=== PATIENT | female | born 1940 | race Caucasian/White ===

== ENCOUNTER 2017-07-22 12:00 | Emergency (ER) | payer OTHER ==
--- NOTE | 2017-07-22 12:35 | PDOC ---
History of Present Illness - General Stated Complaint: CELLULITIS (PCP SENT) Time Seen by Provider: 07/22/17 12:32 History Source: Patient Exam Limitations: No Limitations - History of Present Illness Initial Comments: 07/22/17 12:35 The patient is a 77 year old female with a h/o hypothyroidism, HTN and hyperlipidemia and melanoma who presents to the ED sent by her PCP Dr. Gresham for treatment of cellulitis of the left leg if she didn't feel better by today. Symptoms started on Tuesday. She saw Dr. Gresham Tuesday who started her on Cefalexin. Vaccinated for shingles in the past. States that the pain radiated from the inside of her buttock to the right radiating along the external side of her thigh. Painful to light touch. Red rash on the thigh. 07/22/17 14:49 07/22/17 15:16 Negative Duplex. Will treat for Zoster. Past History - Past Medical History Allergies/Adverse Reactions: Allergies Allergy/AdvReac Type Severity Reaction Status Date / Time No Known Drug Allergies Allergy Verified 03/11/16 08:25 Home Medications: Ambulatory Orders Rosuvastatin Calcium [Crestor] 5 mg PO DAILY 08/30/14 Thyroid,Pork [[place] Thyroid] 60 mg PO DAILY 08/30/14 Valsartan/Hydrochlorothiazide [Valsartan-Hctz 160-25 mg Tab] 1 each PO DAILY 12/09 Valacyclovir HCl [Valtrex -] 1,000 mg PO TID #21 tablet 07/22/17 Anemia: No Asthma: No Cancer: No Cardiac Disorders: No CVA: No COPD: No CHF: No Dementia: No Diabetes: No GI Disorders: Yes (DIVERTICULITIS) Disorders: No HTN: Yes Hypercholesterolemia: No Liver Disease: No Seizures: No Thyroid Disease: Yes - Surgical History Abdominal Surgery: No Appendectomy: No Cardiac Surgery: No Cholecystectomy: No Lung Surgery: No Neurologic Surgery: No Orthopedic Surgery: No - Suicide/Smoking/Psychosocial Hx Smoking History: Never smoked Hx Alcohol Use: Yes (SOCIALLY) Drug/Substance Use Hx: No Substance Use Type: None Hx Substance Use Treatment: No Review of Systems - Review of Systems Able to Perform ROS?: Yes Is the patient limited Citizen Of [place] proficient: No Constitutional: No: Symptoms Reported HEENTM: Yes: Ear Pain (complains of left red swollen ear since her arrival.) Respiratory: No: Symptoms reported Cardiac (ROS): No: Symptoms Reported ABD/GI: No: Symptoms Reported : No: Symptoms Reported Musculoskeletal: No: Symptoms Reported Integumentary: Yes: Erythema, Flushing, Rash. No: Pruritus Neurological: No: Symptoms reported All Other Systems: Reviewed and Negative *Physical Exam - Physical Exam General Appearance: Yes: Nourished, Appropriately Dressed. No: Apparent Distress HEENT: positive: EOMI, MO. negative: TM Bulging, TM Dull, TM Erythema Respiratory/Chest: positive: Lungs Clear, Normal Breath Sounds. negative: Chest Tender, Respiratory Distress Cardiovascular: positive: Regular Rhythm, Regular Rate, S1, S2 Vascular Pulses: Dorsalis-Pedis (R): 2+, Doralis-Pedis (L): 2+ Gastrointestinal/Abdominal: positive: Normal Bowel Sounds, Flat, Soft. negative : Tender Rectal Exam: positive: other (possibly vesicular round lesion periannaly). negative: hemorrhoids Extremity: positive: Normal Capillary Refill, Inflammation, Other (tender with ligh touch on the surface of her thigh. Red plaque-like rash no vesicles). negative: Delayed Capillary Refill, Swelling Integumentary: positive: Normal Color, Dry, Warm, Erythema Neurologic: positive: Fully Oriented, Alert, Normal Mood/Affect, Normal Response. negative: Abnormal Cranial NS Medical Decision Making - Medical Decision Making 07/22/17 14:57Herpes-zoster vs thrombophlebitis vs cellulitis. basic labs and duplex. If negative will treat with valacyclovir. *DC/Admit/Observation/Transfer Diagnosis at time of Disposition: Herpes zoster of thigh - Discharge Dispostion Disposition: HOME Admit: No - Referrals Referrals: Faviola Gresham MD [Primary Care Provider] - - Patient Instructions Printed Discharge Instructions: DI for Shingles - Post Discharge Activity
[2017-07-22 12:52] VITALS: TEMP 97.9; BMI 26.3
--- NOTE | 2017-07-22 13:44 | PDOC ---
Attending Attestation - HPI HPI: 07/22/17 15:21 The patient is a 77 year old female, with a significant past medical history of htn, hld, hypothyroidism, who presents to the emergency department with 3 days of increasing redness and pain to a wound on her buttock and along her L lateral thigh. Pt has been on cephalexen for the rash by her PMD for 3 days with no improvement. Her PMD advised her to come to the ED if the rash/pain did not improve. She denies chest pain, shortness of breath, headache and dizziness. She denies fever, chills, nausea, vomit, diarrhea and constipation. She denies dysuria, frequency, urgency and hematuria. Allergies: NKDA PMD: Dr. Gresham - Physicial Exam PE: 07/22/17 15:21 GENERAL: Awake, alert, and fully oriented, in no acute distress HEAD: No signs of trauma EYES: PERRLA, EOMI, sclera anicteric, conjunctiva clear ENT: Auricles normal inspection, hearing grossly normal, nares patent, oropharynx clear without exudates. Moist mucosa NECK: Normal ROM, supple, no lymphadenopathy, JVD, or masses LUNGS: Breath sounds equal, clear to auscultation bilaterally. No wheezes, and no crackles HEART: Regular rate and rhythm, normal S1 and S2, no murmurs, rubs or gallops ABDOMEN: Soft, nontender, normoactive bowel sounds. No guarding, no rebound. No masses EXTREMITIES: LLE: L buttock with ttp along L gluteal cleft and skin sensitivity. Palpable mildly erythematous cord along L lateral distal thigh. No calf ttp or edema. +FROM Remaining extremities: Normal range of motion, no edema. No clubbing or cyanosis. No cords, erythema, or tenderness NEUROLOGICAL: Normal speech, cranial nerves intact, negative pronator drift, 5/ 5 strength in all 4 extremities, normal sensation to light touch in all 4 extremities, normal cerebellar exam, normal gait, normal reflexes and tone SKIN: Warm, Dry, normal turgor, no rashes or lesions noted. - Medical Decision Making 07/22/17 15:21 Documentation prepared by Jennifer Mckeon, acting as medical genetics director for Omega Black MD <Jennifer Mckeon - Last Filed: 07/22/17 15:21> - Resident Resident Name: AnilZak - ED Attending Attestation I have performed the following: I have examined & evaluated the patient, The case was reviewed & discussed with the resident, I agree w/resident's findings & plan, Exceptions are as noted - Medical Decision Making 07/22/17 14:37 77-year-old female presents with progressive erythema and pain to left lower extremity. Vitals unremarkable. Exam with left lower extremity skin sensitivity , 1+ non pitting edema as well as a palpable cord to her left lateral thigh. Differential includes but is not limited to cellulitis versus superficial thrombophlebitis versus zoster. Plan: -US doppler -call PMD -consider zoster tx if US neg -reassess -pt currently declines pain medication 07/22/17 15:52 US negative for superficial or deep venous thrombosis. Will treat the patient with valtrex for possible shingles. Advised her to complete her dose of cephalexen. Has f/u with Dr. Gresham on Tuesday, discussed our findings with Dr. Gresham who agrees with our plan to add valtrex. All results explained to patient and her . I discussed the physical exam findings, ancillary test results and final diagnoses with the patient. I answered all of the patient's questions. The patient was satisfied with the care received and felt comfortable with the discharge plan and treatment plan. The patient will call their primary care physician within 24 hours to arrange follow-up and will return to the Emergency Department with any new, persistent or worsening symptoms. <Omega Black - Last Filed: 07/22/17 18:02>
[2017-07-22] MEDS ORDERED: valACYclovir HCL 1000 MG TABLET PO ONE (15:18)
[2017-07-22] MEDS ORDERED: valACYclovir HCL 500 MG TABLET (FP) PO ONE (15:30)
[2017-07-22 16:29] VITALS: BP 148/70; PULSE 81
== END 2017-07-22 16:29 | disposition home or self-care (01) ==
LOC: JER 12:00
DX: B02.9 Zoster without complications (principal); I10 Essential (primary) hypertension
CPT/HCPCS: 93971-TC; 99282-25

== ENCOUNTER 2017-07-23 23:01 | Observation (INO) | payer OTHER ==
[2017-07-24 00:38] LABS: BASO % 0.3 % (0-2.0); EOS % 1.1 % (0-4.5); HEMATOCRIT 33.2 % (32.4-45.2); LYMPH % 21.2 % (8-40); MCHC 33.3 g/dl (32.0-36.0); MEAN CELL VOLUME 83.9 fl (80-96); MEAN PLT VOLUME 8.1 fl (7.5-11.1); MONO % 11.3 % (3.8-10.2); NEUT % 66.1 % (42.8-82.8); PLATELET COUNT 236 K/MM3 (134-434); RBC 3.95 M/mm3 (3.60-5.2); RDW 13.9 % (11.6-15.6); WHITE BLOOD COUNT 11.3 K/mm3 (4.0-10.0)
[2017-07-24] MEDS ORDERED: SODIUM CHLORIDE 1,000 ML IV ONE (00:40)
[2017-07-24] MEDS ORDERED: VANCOMYCIN 1,000 MG in DEXTROSE 5%-WATER - 250 ML IVPB ONE (00:40)
[2017-07-24] MEDS ORDERED: ACETAMINOPHEN 1000 MG/100 ML VIAL (NON FORMULARY) IVPB ONE (00:40)
--- NOTE | 2017-07-24 00:44 | PDOC ---
History of Present Illness - General History Source: Patient Exam Limitations: No Limitations - History of Present Illness Initial Comments: 07/24/17 00:52 The patient is a 77 year old female with past medical history of hypertension, hyperlipidemia, hypothyroidism, and borderline diabetes who presents to the ED with complaints of worsening left lower extremity swelling and pain for the past 6 days. The patient notes her symptoms began at her thigh as a red rash which soon began spreading down the entire extremity. The patient was being treated by her PCP for this symptoms with Cefalexin and was sent to the ED yesterday for worsening swelling. In the ED, the patient had ultrasound which was negative for DVT. She was discharged on Valtrex for shingles precaution. Today, the patient reports no relief in her symptoms. She denies any warmth to the area, fever, chills. She denies any numbness or tingling to the extremity. <Unique Shaikh - Last Filed: 07/24/17 00:51> <Dudley Braxton - Last Filed: 07/24/17 02:24> - General Chief Complaint: Edema Stated Complaint: LEG PAIN Time Seen by Provider: 07/23/17 23:43 Past History <Unique Shaikh - Last Filed: 07/24/17 00:51> - Past Medical History Anemia: No Asthma: No Cancer: No Cardiac Disorders: No CVA: No COPD: No CHF: No Dementia: No Diabetes: No GI Disorders: Yes (DIVERTICULITIS) Disorders: No HTN: Yes Hypercholesterolemia: No Liver Disease: No Seizures: No Thyroid Disease: Yes - Surgical History Abdominal Surgery: No Appendectomy: No Cardiac Surgery: No Cholecystectomy: No Lung Surgery: No Neurologic Surgery: No Orthopedic Surgery: No - Suicide/Smoking/Psychosocial Hx Smoking History: Never smoked Have you smoked in the past 12 months: No Information on smoking cessation initiated: No Hx Alcohol Use: No Drug/Substance Use Hx: No Substance Use Type: None Hx Substance Use Treatment: No <Dudley Braxton - Last Filed: 07/24/17 02:24> - Past Medical History Allergies/Adverse Reactions: Allergies Allergy/AdvReac Type Severity Reaction Status Date / Time No Known Drug Allergies Allergy Verified 07/23/17 23:10 Home Medications: Ambulatory Orders Thyroid,Pork [[place] Thyroid] 60 mg PO DAILY 08/30/14 Valacyclovir HCl [Valtrex -] 1,000 mg PO TID #21 tablet 07/22/17 Cephalexin [Keflex] 500 mg PO DAILY 07/23/17 Valsartan/Hydrochlorothiazide [Diovan Hct 160-12.5 mg Tab] 1 each PO DAILY 07/23 Review of Systems - Review of Systems Constitutional: No: Chills, Fever Respiratory: No: Cough, Shortness of Breath Cardiac (ROS): Yes: Edema. No: Chest Pain Musculoskeletal: Yes: Muscle Pain Integumentary: Yes: Rash All Other Systems: Reviewed and Negative <Dudley Braxton - Last Filed: 07/24/17 02:24> *Physical Exam - Vital Signs Last Vital Signs Temp Pulse Resp BP Pulse Ox 97.2 F L 82 16 150/63 98 07/23/17 23:08 07/23/17 23:08 07/23/17 23:08 07/23/17 23:08 07/23/17 23:08 - Physical Exam Comments: 07/24/17 00:52 GENERAL: The patient is awake, alert, and fully oriented, in no acute distress. HEAD: Normal with no signs of trauma. EYES: Pupils equal, round and reactive to light, extraocular movements intact, sclera anicteric, conjunctiva clear with no pallor. ENT: Ears normal, nares patent, oropharynx clear without exudates. Moist mucous membranes. NECK: Normal range of motion, supple without lymphadenopathy, JVD, or masses. LUNGS: Breath sounds equal, clear to auscultation bilaterally. No wheeze/ crackles. HEART: Regular rate and rhythm, normal S1 and S2 without murmur or rub. ABDOMEN: Soft/nontender/nondistended. BS wnl. No guarding or rebound. No palpable masses. No hepatosplenomegaly. EXTREMITIES:3+ pitting edema extending from groin to toes of LLE, Not warm to touch. Distal pulses are palpable. 3-4 cm area of tender induration of the anterolateral aspect of her thigh. No fluctuance or discharge. ? s4 dermatome, erythematous rash with vesicular lesions Normal range of motion. No clubbing or cyanosis. NEUROLOGICAL: Cranial nerves II through XII grossly intact. Normal speech, normal gait. PSYCH: Normal mood, normal affect. SKIN: Warm, Dry, normal turgor, no rashes or lesions noted. <Unique Shaikh - Last Filed: 07/24/17 00:51> - Vital Signs Last Vital Signs Temp Pulse Resp BP Pulse Ox 97.2 F L 82 16 150/63 98 07/23/17 23:08 07/23/17 23:08 07/23/17 23:08 07/23/17 23:08 07/23/17 23:08 <Dudley Braxton - Last Filed: 07/24/17 02:24> ED Treatment Course - LABORATORY CBC & Chemistry Diagram: 07/24/17 00:31 07/24/17 00:31 - ADDITIONAL ORDERS Additional order review: 07/24/17 00:31 RBC 3.95 MCV 83.9 MCHC 33.3 RDW 13.9 MPV 8.1 Neutrophils % 66.1 Lymphocytes % 21.2 D Monocytes % 11.3 H Eosinophils % 1.1 Basophils % 0.3 <Unique Shaikh - Last Filed: 07/24/17 00:51> - LABORATORY CBC & Chemistry Diagram: 07/24/17 00:31 07/24/17 00:31 - ADDITIONAL ORDERS Additional order review: 07/24/17 00:31 RBC 3.95 MCV 83.9 MCHC 33.3 RDW 13.9 MPV 8.1 Neutrophils % 66.1 Lymphocytes % 21.2 D Monocytes % 11.3 H Eosinophils % 1.1 Basophils % 0.3 - RADIOLOGY Radiology Studies Ordered: Category Date Time Status LOWER EXTREMITY CT WITH CONTR [CT] Stat CT Scan 07/24/17 00:41 Ordered CHEST X-RAY PORTABLE* [RAD] Stat Radiology 07/24/17 00:01 Ordered <Dudley Braxton - Last Filed: 07/24/17 02:24> Medical Decision Making - Medical Decision Making 07/24/17 00:45 A portion of this note was documented by scribe services under my direction. I have reviewed the details of the note, within reason, and agree with the documentation with the following case summary and management plan written by me. 77-year-old female with history of hypertension, high cholesterol, borderline diabetes presents with progressive swelling and discomfort to her left lower extremity. Symptoms began about 6 days ago with a discomfort to her lower left thigh, no trauma but noticed some redness. As the redness was expanding, she was started on cephalexin by her primary physician 4 days ago, but developed progressive swelling to her left leg so she presents to the emergency department yesterday for evaluation. An ultrasound showed no DVT, the patient was noted to have a vesicular rash around her buttock, so bowel checks was added for presumed shingles. The patient now presents secondary to still worsening swelling of her left leg with discomfort and difficulty ambulating. Afebrile, vital signs normal. Well-appearing, cardiopulmonary exam is normal Left leg: There is circumferential edema from the left groin throughout the left lower extremity, pitting, only minimal discomfort to palpation throughout the muscle/soft tissue. There is no focal bony deformity or tenderness, full range of motion at all joints. No warmth, well perfused distally. There is a small area of induration in the anterolateral aspect of the distal upper leg. There is also an erythematous rash with vesicles in the S4 distribution dermatome. 77-year-old female with progressive edema of her left lower extremity, question infectious. Began with a very superficial cellulitis, question underlying myositis but does not have much tenderness. No DVT on ultrasound performed yesterday, question lymphatic obstruction. Also with shingles, question reactive edema. Check labs including CPK IV antibiotics for presumed infectious process, will give vancomycin for MRSA coverage CT of the lower leg with IV contrast Admission given progression of symptoms and difficulty ambulating 07/24/17 01:26 wbc 11.3 with normal diff, normal cpk, elevated CRP, ESR pending. Seems less likely c/w myositis, CT pending. Receiving abx. Will proceed with admission, [facility] service paged. 07/24/17 01:47 Torso redness without urticaria after vancomycin infusion, question ALLERGIC reaction versus red Man side effect. Infusion had already been completed, given Benadryl. 07/24/17 02:[address] w/ contrast, ESR pending. Redness resolved after benadryl. Accepted for obs med/surg by Dr. Guo, Nurse supervisor inspection and testing aware and searching for bed. <Dudley Braxton - Last Filed: 07/24/17 02:24> *DC/Admit/Observation/Transfer - Attestations Scribe Attestion: 07/24/17 00:52 Documentation prepared by Unique Shaikh, acting as medical technologist chief for Dudley Braxton MD. <Unique Shaikh - Last Filed: 07/24/17 00:51> - Discharge Dispostion Admit: Yes <Dudley Braxton - Last Filed: 07/24/17 02:24> Diagnosis at time of Disposition: Left leg swelling - Discharge Dispostion Condition at time of disposition: Fair - Referrals Referrals: Faviola Gresham MD [Primary Care Provider] - - Patient Instructions - Post Discharge Activity
[2017-07-24] MEDS ORDERED: VANCOMYCIN 1 GRAM (PRE-DOCKED) 1,000 MG/250 ML BAG IVPB ONE (00:47)
[2017-07-24 00:54] LABS: INR 1.13 (0.82-1.09); PROTHROMBIN TIME (PATIENT) 12.8 SEC (9.98-11.88)
[2017-07-24 00:57] LABS: ACTIVATED PTT 27.4 SECONDS (26.9-34.4)
[2017-07-24 01:03] LABS: ALBUMIN 3.9 g/dl (3.4-5.0); ALK PHOS 89 U/L (45-117); ANION GAP 10 (8-16); BILIRUBIN,TOTAL 0.6 mg/dL (0.2-1.0); BLOOD UREA NITROGEN 17 mg/dL (7-18); CALCIUM 8.5 mg/dL (8.5-10.1); CHLORIDE 92 mmol/L (98-107); CO2 28 mmol/L (21-32); CREATININE 0.9 mg/dL (0.55-1.02); GLUCOSE,RANDOM 130 mg/dL (74-106); POTASSIUM 3.5 mmol/L (3.5-5.1); SGOT/AST 30 U/L (15-37); SGPT/ALT 47 U/L (12-78); SODIUM 130 mmol/L (136-145); TOT PROT 7.4 g/dl (6.4-8.2)
[2017-07-24 02:28] LABS: ERYTHROCYTE SEDIMENTATION RATE 32 mm/hr (0-30)
--- NOTE | 2017-07-24 03:16 | HP ---
CHIEF COMPLAINT: left Leg swelling PCP: HISTORY OF PRESENT ILLNESS: 77 year old female with a past medical history of hypertension, hypothyroidism, hyperlipidemia presents to the hospital with a 4 day hx of left lower extremity pain and swelling. Patient states that she was in her house on Tuesday casually walking from one room to another when she felt a pain on the left anterior thigh. She states that the pain was a throbbing pain and it hurt her to walk. After the pain began focally in that location, the area began to swell as well. Patient visited her primary care physician, who diagnosed her with cellulitis and prescribed her cephalexin 500mg PO QD. Patient took this medication until this morning to no effect. She was in the hospital yesterday for examination of the leg, had a duplex US, which ruled out DVT in the leg. It was noticed that patient had a rash in her gluteal cleft, which was attributed to potential zoster infection, and the patient was discharged on valtrex. She states that the leg is much more swollen than it had been before and that it is tender to touch and to move. Additionally, patient states that she has a rash on her gluteal cleft that is painful for her when she sits on it or needs to use the bathroom. Patient denies chest pain, SOB, nausea, vomiting, diarrhea, fevers, or chills. No recent travel or bug bites. Patient states that she was sick with "gastroenteritis" 1 week ago and had diarrhea but no nausea or vomiting. Patient states that this was self-limiting. ER course was notable for: (1) leukocytosis 11.3 (2) hyponatremia 130 (3) Recent Travel: none PAST MEDICAL HISTORY: hypertension, hypothyroidism, hyperlipidemia PAST SURGICAL HISTORY: Social History: Smoking: none, never Alcohol: occasional Drugs: never Family History: Allergies No Known Drug Allergies Allergy (Verified 07/23/17 23:10) HOME MEDICATIONS: Home Medications Medication Instructions Recorded Thyroid,Pork [[place] Thyroid] 60 mg PO DAILY 08/30/14 Valacyclovir HCl [Valtrex -] 1,000 mg PO TID #21 tablet 07/22/17 Cephalexin [Keflex] 500 mg PO DAILY 07/23/17 Valsartan/Hydrochlorothiazide 1 each PO DAILY 07/23/17 [Diovan Hct 160-12.5 mg Tab] REVIEW OF SYSTEMS CONSTITUTIONAL: Absent: fever, chills, diaphoresis, generalized weakness, malaise, loss of appetite, weight change HEENT: Absent: rhinorrhea, nasal congestion, throat pain, throat swelling, difficulty swallowing, mouth swelling, ear pain, eye pain, visual changes CARDIOVASCULAR: Absent: chest pain, syncope, palpitations, irregular heart rate, lightheadedness , peripheral edema RESPIRATORY: Absent: cough, shortness of breath, dyspnea with exertion, orthopnea, wheezing, stridor, hemoptysis GASTROINTESTINAL: Absent: abdominal pain, abdominal distension, nausea, vomiting, diarrhea, constipation, melena, hematochezia GENITOURINARY: Absent: dysuria, frequency, urgency, hesitancy, hematuria, flank pain, genital pain MUSCULOSKELETAL: joint swelling, extremity swelling Absent: myalgia, arthralgia, back pain, neck pain SKIN: Absent: rash, itching, pallor HEMATOLOGIC/IMMUNOLOGIC: Absent: easy bleeding, easy bruising, lymphadenopathy, frequent infections ENDOCRINE: Absent: unexplained weight gain, unexplained weight loss, heat intolerance, cold intolerance NEUROLOGIC: Absent: headache, focal weakness or paresthesias, dizziness, unsteady gait, seizure, mental status changes, bladder or bowel incontinence PSYCHIATRIC: Absent: anxiety, depression, suicidal or homicidal ideation, hallucinations. PHYSICAL EXAMINATION Vital Signs - 24 hr 07/23/17 23:08 Temperature 97.2 F L Pulse Rate 82 Respiratory 16 Rate Blood Pressure 150/63 O2 Sat by Pulse 98 Oximetry (%) GENERAL: Awake, alert, and fully oriented, in no acute distress. HEAD: Normal with no signs of trauma. EYES: Pupils equal, round and reactive to light, extraocular movements intact, sclera anicteric, conjunctiva clear. No lid lag. LUNGS: Breath sounds equal, clear to auscultation bilaterally. No wheezes, and no crackles. No accessory muscle use. HEART: Regular rate and rhythm, normal S1 and S2 without murmur, rub or gallop. ABDOMEN: Soft, nontender, not distended, normoactive bowel sounds, no guarding, no rebound, no masses. No hepatomegaly or splenomegaly. MUSCULOSKELETAL: reduced range of motion of LLE, No bony deformities or tenderness. No CVA tenderness. UPPER EXTREMITIES: 2+ pulses, warm, well-perfused. No cyanosis. No clubbing. No peripheral edema. LOWER EXTREMITIES: 2+ pulses in RLE, 1+ pulse appreciated in LLE, warm, well- perfused. No calf tenderness. erythematous, cord-like lesion noted on anterior left thigh. Left thigh and leg 1+ edema. NEUROLOGICAL: Cranial nerves II-XII intact. Normal speech. Normal gait. PSYCHIATRIC: Cooperative. Good eye contact. Appropriate mood and affect. SKIN: Warm, dry, normal turgor, erythematous rash noted on and around gluteal cleft that is also tender to palpation Laboratory Results - last 24 hr 07/24/17 07/24/17 07/24/17 00:31 00:31 00:31 WBC 11.3 H D RBC 3.95 Hgb 11.0 Hct 33.2 MCV 83.9 MCH 28.0 MCHC 33.3 RDW 13.9 Plt Count 236 MPV 8.1 Neutrophils % 66.1 Lymphocytes % 21.2 D Monocytes % 11.3 H Eosinophils % 1.1 Basophils % 0.3 ESR 32 H PT with INR 12.80 H INR 1.13 PTT (Actin FS) 27.4 Sodium 130 L Potassium 3.5 Chloride 92 L Carbon Dioxide 28 Anion Gap 10 BUN 17 Creatinine 0.9 Creat Clearance w eGFR > 60 Random Glucose 130 H Calcium 8.5 Total Bilirubin 0.6 D AST 30 ALT 47 Alkaline Phosphatase 89 Creatine Kinase C-Reactive Protein 7.7 H Total Protein 7.4 Albumin 3.9 07/24/17 00:31 WBC RBC Hgb Hct MCV MCH MCHC RDW Plt Count MPV Neutrophils % Lymphocytes % Monocytes % Eosinophils % Basophils % ESR PT with INR INR PTT (Actin FS) Sodium Potassium Chloride Carbon Dioxide Anion Gap BUN Creatinine Creat Clearance w eGFR Random Glucose Calcium Total Bilirubin AST ALT Alkaline Phosphatase Creatine Kinase 69 C-Reactive Protein Total Protein Albumin ASSESSMENT/PLAN: 77 year old female with a past medical history of hypertension, hyperlipidemia, hypothyroidism presents to the hospital for left lower extremity pain and erythema likely 2/2 cellulitis vs zoster infection #Cellulitis of LLE: concerning due to cord-like palpable lesion with swelling, erythema, and leukocytosis -F/U CT LLE -Vancomycin given in ED -Give ceftriaxone 1 gram -ID consult Dr. Maxwell appreciated -ABX per ID -pulse checks- concern for compartment syndrome if leg continues to swell #Possible Shingles: due to appearance of rash that is tender to palpation on gluteal cleft -continue valtrex #Hyponatremia: sodium 130 today -continue standing fluids at 83cc/hr -hold thiazide diuretic (HCTZ) in setting of hyponatremia #Hypokalemia: potassium on low end of normal -give 1 dose K-dur #Hypertension: BP 150/63 -continue home diovan 160 -HOLD home HCTZ 25 as it can exacerbate hyponatremia #Hypothyroidism: controlled -continue home armor thyroid -alternate doses every other day between 30mg and 60mg (Sees Dr. Parson) #FEN -Continue NS @ 83cc/hr -Hyponatremic/hypokalemic, replete lytes and in Am, repeat BMP in AM -Low sodium diet #Prophylaxis -heparin 5000 subq TID #Disposition -admit to obs Visit type - Emergency Visit Emergency Visit: Yes ED Registration Date: 07/24/17 Care time: The patient presented to the Emergency Department on the above date and was hospitalized for further evaluation of their emergent condition. - New Patient This patient is new to me today: Yes Date on this admission: 07/24/17 - Critical Care Critical Care patient: No
[2017-07-24] MEDS ORDERED: POTASSIUM CHLORIDE TABS 20 MEQ TABLET.ER (FP) PO ONE (03:33)
[2017-07-24] MEDS: SODIUM CHLORIDE 1,000 ML IV SCH ×3 (03:54→23:05)
--- NOTE | 2017-07-24 06:03 | PN ---
Teaching Attending Note Name of Resident: Nelson Dow ATTENDING PHYSICIAN STATEMENT I saw and evaluated the patient. Chart, data, imaging reviewed. I reviewed the resident's note and discussed the case with the resident. I agree with the resident's findings and plan as documented. SUBJECTIVE: 77 year old woman with past medical history of HTN, DLP, hypothyroidism, borderline DM, presented to ER with history of one week of unilateral left lower extremity swelling. She was prescribed cephalexin 4 days ago for possible cellulitis of left lower extremity and did not see improvement. There was no trauma or insect bites of the lower extremity. Patient underwent duplex U/S of left lower extremity on 07/22 which failed to show any DVT. CT showed some soft tissue swelling. Also with erythematous, painful rash in s3-s4 dermatome region. Prescribed Valtrex for possible shingles on 07/22/16. Patient denied any foreign travels. She has a pet dog which is not new. No new medications recently except for cephalexin. OBJECTIVE: Last Vital Signs Temp Pulse Resp BP Pulse Ox 97.2 F L 82 16 150/63 98 07/23/17 23:08 07/23/17 23:08 07/23/17 23:08 07/23/17 23:08 07/23/17 23:08 General- nad, aaox3 heent- at, nc, no sinus tenderness neck -supple cv-s1+S2+ rrr chest- cta b/l abdomen- soft, nt, bs+ Ext- left lower extremity grossly edematous, warm to touch with some erythematous maciel in lateral thigh skin -erythema in s3-s3 dermatome area, no obvious vesicles seen Abnormal Lab Results 07/24/17 07/24/17 07/24/17 00:31 00:31 00:31 WBC 11.3 H D Monocytes % 11.3 H ESR 32 H PT with INR 12.80 H Sodium 130 L Chloride 92 L Random Glucose 130 H C-Reactive Protein 7.7 H ASSESSMENT AND PLAN: #Left lower extremity swelling- unclear etiology. May be cellulitis as there is swelling and it is warm to touch, although no response to cephalexin. It is prudent to repeat vascular study of left leg to r/o DVT. CT of LE is not diagnostic. Less likely elephantiasis as patient denies traveling outside of the [place]. Concern also for autoimmune dz with soft tissue swelling as there is elevated ESR and CRP as seen above. -send blood cultures x2 -vancomycin 1g IV q12hrs -cefriaxone 2g IV q24hrs -ID consult for antibiotic approval -Repeat Duplex U/S of left lower extremity -quantiferon gold -leg elevation -FAISAL, RF, CK level #Possible shingles in sacral dermatome -valtrex 1 g po tid for one week #Hyponatremia - r/o uncontrolled hypothyroidism as patient already has baseline thyroid dz. May be 2/2 to hydrochlorothiazide. -send serum osm, urine osm -send tsh -hold hydrochlorothiazide for now -monitor Na carefully dvt ppx -heparin sc
[2017-07-24 06:09] VITALS: BMI 31.6
[2017-07-24] MEDS ORDERED: CEFTRIAXONE 1 G/50 ML PREMIX 50 ML IVPB SCH (10:00)
[2017-07-24] MEDS ORDERED: CEFTRIAXONE 1 GM in DEXTROSE 5%-WATER - 50 ML IVPB SCH (10:00)
[2017-07-24] MEDS ORDERED: VALSARTAN 160 MG TABLET (UD) PO SCH (10:00)
[2017-07-24] MEDS ORDERED: HYDROCHLOROTHIAZIDE 25 MG TABLET (FP) PO SCH (10:00)
[2017-07-24] MEDS ORDERED: THYROID 60 MG TABLET PO SCH ×2 (10:00)
[2017-07-24] MEDS: valACYclovir HCL 500 MG TABLET (FP) PO SCH ×3 (10:18→22:29)
[2017-07-24] MEDS: HEPARIN NA (PORCINE) 5,000 UNITS/ML 1ML VIAL SQ SCH ×2 (10:19→15:34)
--- NOTE | 2017-07-24 11:38 | EKG ---
Test Reason : Blood Pressure : / mmHG Vent. Rate : 082 BPM Atrial Rate : 082 BPM P-R Int : 180 ms QRS Dur : 074 ms QT Int : 384 ms P-R-T Axes : 055 036 047 degrees QTc Int : 448 ms NORMAL SINUS RHYTHM LOW VOLTAGE QRS CANNOT RULE OUT ANTERIOR INFARCT (CITED ON OR BEFORE 07-JAN-2005) ABNORMAL ECG WHEN COMPARED WITH ECG OF 30-AUG-2014 12:22, QUESTIONABLE CHANGE IN INITIAL FORCES OF SEPTAL LEADS Confirmed by MD KRYSTAL, DEBBIE ([id number]) on 07/24/2017 11:38:38 AM Referred By: Confirmed By:DEBBIE RICE MD
--- NOTE | 2017-07-24 15:59 | PN ---
Progress Note (short form) - Note Progress Note: ID Consult dictated L LE DVT Doubt H. zoster D/C antibiotics Topical antifungal to gluteal fold
--- NOTE | 2017-07-24 16:31 | PN ---
Progress Note (short form) - Note Progress Note: (Patient seen and admitted earlier by House physician team -care turned over to [facility] [place] now, when it was noted that patient's PMD is in our group (Dr. Gresham)) -repeat LE doppler returned with extensive DVT left leg. No prior history of DVT, no recent immobilization or travel, no family history of blood clots or sudden deaths. -will start Eliquis (10mg bid x 1 week then 5mg bid) -hematology eval
--- NOTE | 2017-07-24 18:24 | CONS ---
DATE OF CONSULTATION: 07/24/2017 The patient is a 77-year-old female evaluated for possible cellulitis and herpes zoster. The patient presents with an approximately 1-week history of left lower extremity pain and swelling. She had been seen by her primary care physician and was prescribed cephalexin for presumed cellulitis. Despite the antibiotics, she had developed progressively worsening pain and swelling of the left lower extremity. She denied any traumatic injury. No insect animal bites or scratches. She underwent a duplex exam of the left lower extremity on July 22, which was negative for DVT. She was admitted to the hospital and treated for possible cellulitis with vancomycin and ceftriaxone. In addition, she was also treated with Valtrex for possible herpes zoster involving the gluteal area. A followup Doppler exam was performed today and shows extensive left-sided DVT. She denies any associated fever or chills. Past medical history positive for hypertension, hyperlipidemia, melanoma, hypothyroidism. No known allergies. MEDICATIONS: Crestor, thyroid replacement, valsartan, hydrochlorothiazide, Valtrex. SOCIAL HISTORY: Lives at home with family members. Nonsmoker, nondrinker. SYSTEMS REVIEW: Neurologic: No loss of consciousness, seizure activity, focal weakness. Cardiac: Negative chest pain or palpitations. Respiratory: Negative cough or sputum production. Gastrointestinal: Negative vomiting or diarrhea. Genitourinary: Negative for urinary tract infection. LABORATORY DATA: White count 11.3, hematocrit 33.2, platelet count 236. BUN 17, creatinine 0.9, liver enzymes normal. Urine culture negative. PHYSICAL EXAMINATION: General: She is awake and alert, she is in no acute distress. Vital Signs: Temperature 98.4. Blood pressure 150/88. Pulse 86, regular. Respirations 18 per minute. Eyes: Sclerae anicteric. Heart Sounds: S1, S2. Lungs: Clear. Abdomen: Soft. Nontender. Extremities: There is diffuse swelling of the left lower extremity from the groin area to the foot. There was a small erythematous area present on the middle aspect of the anterior thigh. No vesicular lesions are noted. There is an erythematous area present in the infragluteal fold superior to the anus. It is erythematous, well circumscribed. There are no vesicular lesions noted. IMPRESSION: 1. Left lower extremity deep vein thrombosis. 2. Doubt herpes zoster. Discontinue antibiotics, anticoagulate, topical antifungal to gluteal fold. Thank you for the kind referral. PABLO GEE M.D. [id number]
[2017-07-24] MEDS: DIOVAN HCTZ PO SCH (22:28)
[2017-07-24] MEDS: [UNRECOGNIZED DRUG - OTHER] PO SCH (22:28)
[2017-07-24] MEDS: APIXABAN 5 MG TABLET PO SCH (22:29)
[2017-07-25] MEDS: SODIUM CHLORIDE 1,000 ML IV SCH (05:41)
[2017-07-25] MEDS: valACYclovir HCL 500 MG TABLET (FP) PO SCH ×3 (05:42→21:50)
[2017-07-25 08:03] LABS: HEMATOCRIT 30.8 % (32.4-45.2); HEMOGLOBIN 10.1 GM/dL (10.7-15.3); MCH 27.5 pg (25.7-33.7); MCHC 32.7 g/dl (32.0-36.0); MEAN PLT VOLUME 7.9 fl (7.5-11.1); PLATELET COUNT 226 K/MM3 (134-434); RBC 3.66 M/mm3 (3.60-5.2); RDW 13.7 % (11.6-15.6); WHITE BLOOD COUNT 9.3 K/mm3 (4.0-10.0)
[2017-07-25 08:29] LABS: ANION GAP 11 (8-16); BLOOD UREA NITROGEN 8 mg/dL (7-18); CALCIUM 8.4 mg/dL (8.5-10.1); CHLORIDE 97 mmol/L (98-107); CO2 25 mmol/L (21-32); CREATININE 0.6 mg/dL (0.55-1.02); GLUCOSE,RANDOM 107 mg/dL (74-106); PHOSPHOROUS 3.1 mg/dL (2.5-4.9); POTASSIUM 3.7 mmol/L (3.5-5.1); SODIUM 133 mmol/L (136-145)
[2017-07-25] MEDS ORDERED: DIOVAN HCTZ PO SCH (10:00)
[2017-07-25] MEDS ORDERED: THYROID 30 MG TABLET PO SCH (10:00)
[2017-07-25] MEDS: APIXABAN 5 MG TABLET PO SCH ×2 (10:16→21:50)
[2017-07-25] MEDS: DIOVAN HCTZ PO SCH (10:18)
[2017-07-25] MEDS: [UNRECOGNIZED DRUG - OTHER] PO SCH (10:19)
[2017-07-25] MEDS ORDERED: PT OWN MED DRAWER 7, Y5N ONE ×2 (11:45→21:38)
--- NOTE | 2017-07-25 13:41 | PN ---
Progress Note, Physician Chief Complaint: Patient complains of LLE pain and swelling, says not improved. No cp, sob, n/v. - Current Medication List Current Medications: Active Medications Apixaban (Eliquis -) 10 mg PO BID [facility] Last Admin: 07/25/17 10:16 Dose: 10 mg Sodium Chloride (Normal Saline -) 1,000 mls @ 83 mls/hr IV ASDIR [facility] Last Admin: 07/25/17 05:41 Dose: Not Given Pt's Own Med ( (Ezetimbe 10mg)) 1 each PO DAILY [facility] Last Admin: 07/25/17 10:19 Dose: 1 each Thyroid ([place] Thyroid -) 30 mg PO Q2D [facility] Last Admin: 07/25/17 10:16 Dose: 30 mg Thyroid ([place] Thyroid -) 60 mg PO Q2D [facility] Last Admin: 07/24/17 10:19 Dose: 60 mg Valacyclovir HCl (Valtrex -) 1,000 mg PO TID [facility] Last Admin: 07/25/17 05:42 Dose: 1,000 mg Valsartan (Diovan -) 160 mg PO DAILY [facility] - Objective Vital Signs: Vital Signs Temperature 37.1 C 07/25/17 05:41 Pulse Rate 84 07/25/17 05:41 Respiratory Rate 18 07/25/17 05:41 Blood Pressure 122/63 07/25/17 05:41 O2 Sat by Pulse Oximetry (%) 99 07/25/17 03:00 Constitutional: Yes: Well Nourished, No Distress, Calm Cardiovascular: Yes: Regular Rate and Rhythm. No: Gallop, Murmur, Rub Respiratory: Yes: Regular, CTA Bilaterally. No: Rales, Rhonchi, Wheezes Gastrointestinal: Yes: Normal Bowel Sounds, Soft. No: Distention, Tenderness Extremities: Yes: Erythema Edema: Yes Edema: LLE: 2+ Labs: CBC, BMP 07/25/17 06:35 07/25/17 06:35 INR, PTT INR 1.13 (0.82-1.09) 07/24/17 00:31 Problem List - Problems (1) DVT (deep venous thrombosis) Assessment/Plan: -continue eliquis 10mg bid -hematology consulted, awaiting recommendations -possible discharge tomorrow Code(s): I82.409 - ACUTE EMBOLISM AND THOMBOS UNSP DEEP VN UNSP LOWER EXTREMITY Qualifiers: DVT location: lower extremity Affected thrombotic vein of extremity: femoral Chronicity: acute Laterality: left Qualified Code(s): I82.412 - Acute embolism and thrombosis of left femoral vein (2) HTN (hypertension) Assessment/Plan: -holding HCTZ secondary to hyponatremia -continue diovan Code(s): I10 - ESSENTIAL (PRIMARY) HYPERTENSION (3) Hypothyroid Assessment/Plan: -[facility] Code(s): E03.9 - HYPOTHYROIDISM, UNSPECIFIED (4) Hyponatremia Assessment/Plan: -improving -holding HCTZ -recheck in am Code(s): E87.1 - HYPO-OSMOLALITY AND HYPONATREMIA
[2017-07-25] MEDS: VALSARTAN 160 MG TABLET (UD) PO SCH (15:43)
--- NOTE | 2017-07-25 17:58 | CONSULT ---
Consult - text type - Consultation Consultation Note: The patient is a 77 year old female with past medical history of hypertension, hyperlipidemia, hypothyroidism, and borderline diabetes who had complaints of worsening left lower extremity swelling and pain for the past 7-8 days. The patient notes her symptoms began at her thigh as a red rash which soon began spreading down the entire extremity. The patient was being treated by her PCP for this symptoms with Cefalexin and was sent to the ED for worsening swelling. In the ED, the patient had ultrasound which was negative for DVT on . She was discharged on Valtrex for shingles precaution. She came back on wth worsening lower extremity edema. CT scan showed soft issue edema. Repeat duplex on the showed extensive LLE DVT Started on eliquis 10mg bid Today she denies any worsening symptoms but still with swelling and heaviness. OCc. burning pain in the back of the thigh. Able to move her leg - Past Medical History GI Disorders: Yes (DIVERTICULITIS) HTN: Yes - Suicide/Smoking/Psychosocial Hx Smoking History: Never smoked - Past Medical History Allergies/Adverse Reactions: Allergies Allergy/AdvReac Type Severity Reaction Status Date / Time No Known Drug Allergies Allergy Verified 07/23/17 23:10 Home Medications: Ambulatory Orders Thyroid,Pork [[place] Thyroid] 60 mg PO DAILY 08/30/14 Valacyclovir HCl [Valtrex -] 1,000 mg PO TID #21 tablet 07/22/17 Cephalexin [Keflex] 500 mg PO DAILY 07/23/17 Valsartan/Hydrochlorothiazide [Diovan Hct 160-12.5 mg Tab] 1 each PO DAILY 07/23 - Vital Signs Last Vital Signs Temp Pulse Resp BP Pulse Ox 97.2 F L 82 16 150/63 98 07/23/17 23:08 07/23/17 23:08 07/23/17 23:08 07/23/17 23:08 07/23/17 23:08 Cor: RSR, No murmurs, No gallops Lungs: Clear to P&A Abd: Soft, Normal bowel sounds, No organomegaly Ext:LLE 3+ edema, Good pulses distally Abnormal Lab Results 07/25/17 07/25/17 06:35 06:35 Hgb 10.1 L Hct 30.8 L Sodium 133 L Chloride 97 L Random Glucose 107 H Calcium 8.4 L Active Medications Apixaban (Eliquis -) 10 mg PO BID [facility] Last Admin: 07/25/17 10:16 Dose: 10 mg Pt's Own Med ( (Ezetimbe 10mg)) 1 each PO DAILY [facility] Last Admin: 07/25/17 10:19 Dose: 1 each Thyroid ([place] Thyroid -) 30 mg PO Q2D [facility] Last Admin: 07/25/17 10:16 Dose: 30 mg Thyroid ([place] Thyroid -) 60 mg PO Q2D [facility] Last Admin: 07/24/17 10:19 Dose: 60 mg Valacyclovir HCl (Valtrex -) 1,000 mg PO TID [facility] Last Admin: 07/25/17 15:44 Dose: 1,000 mg Valsartan (Diovan -) 160 mg PO DAILY [facility] Last Admin: 07/25/17 15:43 Dose: Not Given A/P 77-year-old female with history of hypertension, high cholesterol, borderline diabetes presents with progressive swelling and discomfort to her left lower extremity. Symptoms began on 07/17 with swelling and discomfort of her lower left thig. An ultrasound showed no DVT on , the patient was noted to have a vesicular rash around her buttock, so valtrex was added for presumed shingles. She came back on with worsening swelling-- cT scan showed soft tissue stranding/edema Repeat duplex on showed extensive DVT Unprovoked DVT, extensive LLE Started eliquis 10mg bid on symptoms stable today. Good pulses distally. Able to move her lower ext. Discussed pros/cons of various a/c options --lovenox vs lovenox to coumadin vs eliquis discussed lack of antidote to eliquis Patient understands and is willing to proceed with eliquis 10mg bid for 7 days and switch to 5mg bid after If any worsening clinically will need to switch to lovenox Will request vacular consult ?? thrombolysis age appropriate cancer screening/ thrombophilia w/u as outpatient
[2017-07-26] MEDS ORDERED: PT OWN MED DRAWER 7, Y5N ONE ×2 (05:44→05:45)
[2017-07-26] MEDS ORDERED: THYROID 60 MG TABLET PO SCH (06:00)
[2017-07-26 07:41] LABS: ANION GAP 7 (8-16); BLOOD UREA NITROGEN 8 mg/dL (7-18); CALCIUM 8.3 mg/dL (8.5-10.1); CHLORIDE 95 mmol/L (98-107); CO2 29 mmol/L (21-32); CREATININE 0.7 mg/dL (0.55-1.02); GLUCOSE,RANDOM 111 mg/dL (74-106); PHOSPHOROUS 3.2 mg/dL (2.5-4.9); POTASSIUM 4.1 mmol/L (3.5-5.1); SODIUM 131 mmol/L (136-145)
[2017-07-26 07:51] LABS: BASO % 1.1 % (0-2.0); EOS % 1.6 % (0-4.5); HEMATOCRIT 31.6 % (32.4-45.2); HEMOGLOBIN 10.4 GM/dL (10.7-15.3); LYMPH % 25.5 % (8-40); MCH 27.8 pg (25.7-33.7); MEAN CELL VOLUME 84.4 fl (80-96); MONO % 9.5 % (3.8-10.2); NEUT % 62.3 % (42.8-82.8); PLATELET COUNT 302 K/MM3 (134-434); RBC 3.75 M/mm3 (3.60-5.2); RDW 13.8 % (11.6-15.6); WHITE BLOOD COUNT 10.4 K/mm3 (4.0-10.0)
[2017-07-26] MEDS: valACYclovir HCL 500 MG TABLET (FP) PO SCH ×2 (10:21→16:09)
[2017-07-26] MEDS: VALSARTAN 160 MG TABLET (UD) PO SCH (10:21)
[2017-07-26] MEDS: APIXABAN 5 MG TABLET PO SCH (10:22)
[2017-07-26] MEDS: [UNRECOGNIZED DRUG - OTHER] PO SCH (10:23)
--- NOTE | 2017-07-26 10:47 | CONSULT ---
- Consultation REQUESTING PROVIDER: CONSULT REQUEST: We have been asked to surgically evaluate this patient for LLE DVT, ?thrombolysis. PCP:Gavin Moreno MD HISTORY OF PRESENT ILLNESS: The patient is a 77 yo female who presented to the ER with complaints of LLE swelling/pain. Her symptoms began approximately one week ago, she had an episode illness with diarrhea x 1 day. Other than that she has been mobile. Intially she was treated with oral antiobiotics after being seen by her PMD for redness to her left knee. Her sypmtoms progressed and she was evaluated in the ER which included a negative study for a DVT to her LLE. Upon return because of increased swelling and pain, her DVT is now positive for a DVT. She is being treated with eloquis. She has no history of any GI bleed. No CP, SOB or family history of any coagulopathy. In the past she was treated for heaviness/fatigue in her legs while prolonged ambulation/stairs. An ultrasound at that time was negative and was prescribed compression stockings. PMHx: melanoma, hypothyroidism, HTN PSHx: excision of melanoma to her back left axillary node removal Home Medications Medication Instructions Recorded Thyroid,Pork [[place] Thyroid] 60 mg PO DAILY 08/30/14 Valacyclovir HCl [Valtrex -] 1,000 mg PO TID #21 tablet 07/22/17 Cephalexin [Keflex] 500 mg PO DAILY 07/23/17 Valsartan/Hydrochlorothiazide 1 each PO DAILY 07/23/17 [Diovan Hct 160-12.5 mg Tab] Allergies Allergy/AdvReac Type Severity Reaction Status Date / Time No Known Drug Allergies Allergy Verified 07/23/17 23:10 REVIEW OF SYSTEMS: CONSTITUTIONAL: Absent: fever, chills CARDIOVASCULAR: Absent: chest pain, syncope, palpitations. Present: peripheral edema RESPIRATORY: Absent: cough, shortness of breath PHYSICAL EXAM: GENERAL: Awake, alert, and fully oriented, in no acute distress. NECK: Normal ROM, NO carotid bruits. LUNGS: Clear to auscultation bilat anteriorly. No wheezes, and no crackles. HEART: Regular rate and rhythm. ABDOMEN: Soft, nontender, not distended, normoactive bowel sounds, no guarding. LOWER EXTREMITIES: 2+ DP/femoral pulses, warm, well-perfused. LLE with swelling to thigh. 5/5 dorsi/plantar flexion b/l. NEUROLOGICAL: Normal speech, gait not observed. PSYCH: Cooperative. Good eye contact. Appropriate mood and affect. SKIN: Warm, dry, normal turgor. Vital Signs Temperature 98.4 F 07/26/17 06:00 Pulse Rate 90 07/26/17 06:00 Respiratory Rate 18 07/26/17 06:00 Blood Pressure 125/64 07/26/17 06:00 O2 Sat by Pulse Oximetry (%) 98 07/25/17 22:02 Lab Results WBC 10.4 K/mm3 (4.0-10.0) H 07/26/17 06:00 RBC 3.75 M/mm3 (3.60-5.2) 07/26/17 06:00 Hgb 10.4 GM/dL (10.7-15.3) L 07/26/17 06:00 Hct 31.6 % (32.4-45.2) L 07/26/17 06:00 MCV 84.4 fl (80-96) 07/26/17 06:00 MCHC 33.0 g/dl (32.0-36.0) 07/26/17 06:00 RDW 13.8 % (11.6-15.6) 07/26/17 06:00 Plt Count 302 K/MM3 (134-434) D 07/26/17 06:00 Sodium 131 mmol/L (136-145) L 07/26/17 06:00 Potassium 4.1 mmol/L (3.5-5.1) 07/26/17 06:00 Chloride 95 mmol/L (98-107) L 07/26/17 06:00 Carbon Dioxide 29 mmol/L (21-32) 07/26/17 06:00 Anion Gap 7 (8-16) L 07/26/17 06:00 BUN 8 mg/dL (7-18) 07/26/17 06:00 Creatinine 0.7 mg/dL (0.55-1.02) 07/26/17 06:00 Random Glucose 111 mg/dL (74-106) H 07/26/17 06:00 Calcium 8.3 mg/dL (8.5-10.1) L 07/26/17 06:00 INR 1.13 (0.82-1.09) 07/24/17 00:31 CT: soft tissue swelling, no collection US: LLE: DVT to common femoral, deep and superficial femoral veins, popliteal and posterior Problem List - Problems (1) DVT (deep venous thrombosis) Assessment/Plan: D/w Dr. Kramer, pt will need AC for 6 months. No thrombolysis needed at this time. Continue LLE leg elevation to decrease swelling. Pt may f/u in the office as an outpt. Code(s): I82.409 - ACUTE EMBOLISM AND THOMBOS UNSP DEEP VN UNSP LOWER EXTREMITY Qualifiers: DVT location: lower extremity Affected thrombotic vein of extremity: femoral Chronicity: acute Laterality: left Qualified Code(s): I82.412 - Acute embolism and thrombosis of left femoral vein Visit type - Case Type Case Type: ED Admission - Emergency Emergency Visit: Yes ED Registration Date: 07/24/17 Care time: The patient presented to the Emergency Department on the above date and was hospitalized for further evaluation of their emergent condition. - New patient This patient is new to me today: Yes Date on this admission: 07/26/17
--- NOTE | 2017-07-26 12:31 | DS ---
Physical Examination Vital Signs: Vital Signs Temperature 36.9 C 07/26/17 06:00 Pulse Rate 90 07/26/17 06:00 Respiratory Rate 18 07/26/17 06:00 Blood Pressure 125/64 07/26/17 06:00 O2 Sat by Pulse Oximetry (%) 98 07/25/17 22:02 Constitutional: Yes: Well Nourished, No Distress, Calm Cardiovascular: Yes: Regular Rate and Rhythm. No: Gallop, Murmur, Rub Respiratory: Yes: Regular, CTA Bilaterally. No: Rales, Rhonchi, Wheezes Gastrointestinal: Yes: Normal Bowel Sounds, Soft. No: Distention, Tenderness Extremities: Yes: WNL Edema: LLE: 1+ Labs: CBC, BMP 07/26/17 06:00 07/26/17 06:00 Discharge Summary Reason For Visit: SWELLING OF LEFT EXTREMITY Current Active Problems DVT (deep venous thrombosis) (Acute) HTN (hypertension) (Acute) Hyponatremia (Acute) Hypothyroid (Acute) Left leg swelling (Acute) Hospital Course: (1) DVT (deep venous thrombosis) Code(s): I82.409 - ACUTE EMBOLISM AND THOMBOS UNSP DEEP VN UNSP LOWER EXTREMITY Qualifiers: DVT location: lower extremity Affected thrombotic vein of extremity: femoral Chronicity: acute Laterality: left Qualified Code(s): I82.412 - Acute embolism and thrombosis of left femoral vein (2) HTN (hypertension) Code(s): I10 - ESSENTIAL (PRIMARY) HYPERTENSION (3) Hypothyroid Code(s): E03.9 - HYPOTHYROIDISM, UNSPECIFIED (4) Hyponatremia Code(s): E87.1 - HYPO-OSMOLALITY AND HYPONATREMIA Mrs Art is a very pleasant 77 year old female who comes in with LLE erythema and swelling and was found to have extensive LLE DVT. She was originally admitted for cellulitis but repeat ultrasound showed extensive DVT ( of note ultrasound from 07/22 was read as negative). She was admitted and started on IV antibiotics, she was seen by ID and these were stopped. Also after being found to have DVT she was started on eliquis. Hematology saw the patient and eliquis was continued, also vascular surgery was consulted and evaluated for thrombolysis. At this time felt that it was not indicated and she can be continued on eliquis for 6 months. She was also found to have hyponatremia secondary to HCTZ, this was stopped and she can continue on diovan 160mg daily. She is currently stable for discharge home with close follow up. 32 minutes spent in preparation of this discharge Condition: Good - Instructions Diet, Activity, Other Instructions: resume previous diet and activity. Your blood pressure medication was changed from Diovan HCT 160/25 to Diovan 160 daily. Call office about prior authorization. Referrals: Dori Benites MD [Staff Physician] - Faviola Gresham MD [Primary Care Provider] - Garrett Kramer MD [Staff Physician] - Disposition: HOME - Home Medications Comprehensive Discharge Medication List: Ambulatory Orders Thyroid,Pork [[place] Thyroid] 60 mg PO DAILY 08/30/14 Apixaban [Eliquis -] 10 mg PO ASDIR #40 tablet 07/26/17 Cane 1 each [facility] ASDIR #1 each 07/26/17 Valsartan [Diovan] 160 mg PO DAILY #90 tablet 07/26/17
[2017-07-26 14:24] VITALS: PULSE 91
[2017-07-26 14:25] VITALS: BP 101/48; TEMP 98.3
[2017-07-26 16:28] LABS: PROTEIN C ACTIVITY 133 % (73-180)
[2017-07-27] MEDS ORDERED: THYROID 30 MG TABLET PO SCH (06:00)
== END 2017-07-26 17:31 | disposition home or self-care (01) ==
LOC: JER 23:01 → JERBED 07-24 02:24 → UNDOADMOB 07-24 02:34 → JERBED 07-24 02:34 → J7W 07-24 05:27
PROVIDERS: ADMIT Internal Medicine; ATTEND Internal Medicine
PROC: 3E03329 Introduction of Other Anti-infective into Peripheral Vein, Percutaneous Approach (ICD-10-PCS; principal; 2017-07-24)
PROC: 3E033GC Introduction of Other Therapeutic Substance into Peripheral Vein, Percutaneous Approach (ICD-10-PCS; 2017-07-24)
PROC: 3E0337Z Introduction of Electrolytic and Water Balance Substance into Peripheral Vein, Percutaneous Approach (ICD-10-PCS; 2017-07-24)
PROC: 3E013GC Introduction of Other Therapeutic Substance into Subcutaneous Tissue, Percutaneous Approach (ICD-10-PCS; 2017-07-24)
DX: I82.412 Acute embolism and thrombosis of left femoral vein (principal); I82.432 Acute embolism and thrombosis of left popliteal vein; I82.442 Acute embolism and thrombosis of left tibial vein; E87.1 Hypo-osmolality and hyponatremia; R22.42 Localized swelling, mass and lump, left lower limb; I10 Essential (primary) hypertension; E78.5 Hyperlipidemia, unspecified; E03.9 Hypothyroidism, unspecified; R73.03 Prediabetes
CPT/HCPCS: 36415; 71045-TC; 73701-TC-RT; 80048; 80053; 81240; 82550; 83090; 83735; 84100; 85025; 85027; 85300; 85303; 85306; 85610; 85651; 85730; 86140; 93005; 93010; 93971-TC; 96365; 96372; 96375; 99282-25; G0378; J1644

== ENCOUNTER 2017-08-17 08:12 | Day surgery (SDC) | payer OTHER ==
[2017-08-17 08:23] VITALS: BMI 27.9
[2017-08-17] MEDS ORDERED: HEPARIN NA (PORCINE) 5,000 UNITS/ML 1ML VIAL ONE (08:33)
[2017-08-17] MEDS ORDERED: LIDOCAINE HCL 1%, 10 MG/ML (20ML VIAL) ONE ×2 (08:33→08:44)
--- NOTE | 2017-08-17 08:52 | HP ---
Admitting History and Physical - Admission Chief Complaint: Left lower extremity DVT with swelling and pain. Diagnosed on . Limitations to Obtaining History: No Limitations - Smoking History Smoking history: Never smoked Have you smoked in the past 12 months: No - Alcohol/Substance Use Hx Alcohol Use: No Home Medications - Allergies Allergies/Adverse Reactions: Allergies Allergy/AdvReac Type Severity Reaction Status Date / Time latex Allergy Rash Verified 08/17/17 08:18 - Home Medications Home Medications: Ambulatory Orders Thyroid,Pork [[place] Thyroid] 60 mg PO DAILY 08/30/14 Valsartan [Diovan] 160 mg PO DAILY #90 tablet 07/26/17 Apixaban [Eliquis] 5 mg PO BID 08/17/17 Ezetimibe [Zetia] 10 mg PO HS 08/17/17 Review of Systems - Review of Systems Constitutional: reports: No Symptoms Eyes: reports: No Symptoms HENT: reports: No Symptoms Neck: reports: No Symptoms Cardiovascular: reports: No Symptoms Respiratory: reports: No Symptoms Gastrointestinal: reports: No Symptoms Genitourinary: reports: No Symptoms Musculoskeletal: reports: No Symptoms Integumentary: reports: No Symptoms Neurological: reports: No Symptoms Endocrine: reports: No Symptoms Hematology/Lymphatic: reports: No Symptoms Psychiatric: reports: No Symptoms Physical Examination Vital Signs: Vital Signs Temperature 98.0 F 08/17/17 08:23 Pulse Rate 86 08/17/17 08:23 Respiratory Rate 16 08/17/17 08:23 Blood Pressure 120/60 08/17/17 08:23 O2 Sat by Pulse Oximetry (%) 97 08/17/17 08:23 Constitutional: Yes: Well Nourished, No Distress, Calm Eyes: Yes: WNL, Conjunctiva Clear, EOM Intact HENT: Yes: WNL, Atraumatic, Normocephalic Neck: Yes: WNL, Supple, Trachea Midline Cardiovascular: Yes: WNL, Regular Rate and Rhythm Respiratory: Yes: WNL, Regular, CTA Bilaterally Gastrointestinal: Yes: WNL, Normal Bowel Sounds Musculoskeletal: Yes: WNL Extremities: Yes: WNL Edema: No Edema: LLE: 2+ Peripheral Pulses WNL: Yes Integumentary: Yes: WNL Neurological: Yes: WNL, Alert, Oriented ...Motor Strength: WNL Psychiatric: Yes: WNL Problem List - Problems (1) DVT (deep venous thrombosis) Code(s): I82.409 - ACUTE EMBOLISM AND THOMBOS UNSP DEEP VN UNSP LOWER EXTREMITY Qualifiers: Assessment/Plan DVT left leg 1. For suction thrombectomy of left lower ext DVT today.
[2017-08-17] MEDS ORDERED: KETOROLAC TROMETHAMINE 30 MG/1 ML VIAL ONE (09:12)
[2017-08-17] MEDS ORDERED: MIDAZOLAM HCL 2 MG/2 ML SINGLE DOSE VIAL ONE ×2 (09:14)
[2017-08-17] MEDS ORDERED: PROPOFOL 20 ML ONE ×2 (09:14)
[2017-08-17] MEDS ORDERED: ceFAZolin SODIUM 1 GM VIAL IVPB ONE (09:26)
[2017-08-17] MEDS ORDERED: LIDOCAINE HCL 1%, 10 MG/ML (20ML VIAL) NR ONE ×2 (09:37)
[2017-08-17] MEDS ORDERED: HEPARIN NA (PORCINE) 5,000 UNITS/ML 1ML VIAL SQ ONE (09:40)
[2017-08-17] MEDS ORDERED: oxyCODONE HCL 5 MG TABLET PO PRN (10:27)
[2017-08-17] MEDS ORDERED: ONDANSETRON 4 MG/2 ML VIAL IVPUSH PRN (10:27)
[2017-08-17] MEDS ORDERED: PROMETHAZINE HCL 25 MG/1 ML VIAL IVPUSH PRN (10:27)
[2017-08-17] MEDS ORDERED: LACTATED RINGERS SOLUTION 1,000 ML IV SCH (10:30)
--- NOTE | 2017-08-17 10:35 | OP ---
Operative Note - Note: Operative Date: 08/17/17 Pre-Operative Diagnosis: LLE DVT Operation: Venogram, Suction thrombectomy of femoral vein, iliac vein Findings: Iliac vein DVT - with occlusion. could not get wire up to IVC IVC is patent. Clot in left femoral vein. Post-Operative Diagnosis: Same as Pre-op Surgeon: Garrett Kramer Anesthesia: Fractional Estimated Blood Loss (mls): 30 Operative Report Dictated: Yes
[2017-08-17 11:21] VITALS: TEMP 97.8
--- NOTE | 2017-08-17 11:32 | OP ---
DATE OF OPERATION: 08/17/2017 PREOPERATIVE DIAGNOSIS: Left lower extremity deep venous thrombosis. POSTOPERATIVE DIAGNOSIS: Left lower extremity deep venous thrombosis. PROCEDURE: Venogram, left femoral vein and iliac vein suction thrombectomy. FINDINGS: Patient has a left femoral vein DVT. Patient has left iliac vein DVT with occlusion. IVC is patent. Thrombectomy of the femoral vein was performed and the iliac vein was performed. SURGEON: Garrett King DO ANESTHESIA: Fractional. BLOOD LOSS: 30 mL INDICATION FOR PROCEDURE: The patient is a 77-year-old female who developed a DVT on July 24, and she was admitted to the hospital for anticoagulation. At that time, the ultrasound showed that she had a femoral vein, popliteal vein DVT. She was started on anticoagulation and was discharged. Two weeks later, she came to my office complaining of still severe swelling, and it was decided that she would need a venogram. Patient came in through Ambulatory Surgery. Patient was consented for the procedure, understanding all risks, benefits, and alternatives, then taken to the operating room. DESCRIPTION OF PROCEDURE: Once in the operating room, she was laid on the operating room table in a prone manner on her stomach. We then went ahead and prepped and draped the left popliteal fossa in a sterile surgical manner. We then went ahead under ultrasound guidance and visualized the left popliteal vein, and 10 mL of lidocaine 1% was injected there. We then took our micropuncture needle and punctured the popliteal vein. Micropuncture wire was inserted, and a traditional short 6-Gambian sheath was inserted. We then shot our venogram showing that the popliteal vein was patent, and the distal femoral vein was patent, the mid was patent, but the proximal femoral vein had clot. The iliac vein was occluded. At this point, we placed a 0.035 floppy guidewire up into the iliac vein as far as it would go, and we then used a suction thrombectomy catheter and performed suction thrombectomy of the femoral vein and the iliac vein in 2 passes. Completion venogram now showed that the femoral vein was patent. There was minimal clot there. The iliac vein was still occluded, but there were a lot of collateral circulation that was feeding the IVC. The IVC was visualized between L3 and L4. The left iliac vein is completely occluded. At this point, we decided no more intervention is needed. Patient is on Eliquis and will continue her Eliquis now, continue physical therapy, and will continue wearing stockings. She already feels better to the point where her left thigh is much softer since she has been on anticoagulation. At this point, we took out our sheath, and pressure was held over the left popliteal fossa for 5 minutes. there was no bleeding, area was wet and dried, and Dermabond was placed. The patient tolerated the procedure with no complications. Patient transferred to PACU in stable condition. GARRETT KING DO NP/[id number]
[2017-08-17 16:41] VITALS: BP 135/73; PULSE 72
== END 2017-08-17 13:10 | disposition home or self-care (01) ==
LOC: JASU-SURG 08:12
PROVIDERS: ATTEND Surgery Vascular Surgery
PROC: 06CD3ZZ Extirpation of Matter from Left Common Iliac Vein, Percutaneous Approach (ICD-10-PCS; 2017-08-17)
PROC: 06CN3ZZ Extirpation of Matter from Left Femoral Vein, Percutaneous Approach (ICD-10-PCS; principal; 2017-08-17 08:00)
DX: I82.422 Acute embolism and thrombosis of left iliac vein (principal); I82.412 Acute embolism and thrombosis of left femoral vein; I10 Essential (primary) hypertension
CPT/HCPCS: 76000-TC-FY; 94760; J1644

== ENCOUNTER 2017-09-09 11:48 | Inpatient (IN) | payer OTHER ==
--- NOTE | 2017-09-09 12:13 | PDOC ---
History of Present Illness - General Chief Complaint: Rectal Bleed Stated Complaint: BLOOD IN STOOL Time Seen by Provider: 09/09/17 12:13 - History of Present Illness Initial Comments: 77 year old female with a past medical history of hypertension, hypothyroidism , hyperlipidemia, and recent admission for DVT (2 months prior, s/p thrombectomy on 08/17/17 here and currently on eliquis) presenting with orange stools for the last few days. Has no BRBPR, hematemesis, melena, or other sites of bleeding. Denies nausea, vomiting, diarrhea, constipation or other symptoms. She was at her PMD and they recommended that she come to the ED for this bleeding and rapid blood work. Has history of hemorrhoids but never received treatment for them. 09/09/17 12:19 Past History - Past Medical History Allergies/Adverse Reactions: Allergies Allergy/AdvReac Type Severity Reaction Status Date / Time latex Allergy Rash Verified 09/09/17 12:03 Home Medications: Ambulatory Orders Thyroid,Pork [[place] Thyroid] 60 mg PO DAILY 08/30/14 Valsartan [Diovan] 160 mg PO DAILY #90 tablet 07/26/17 Apixaban [Eliquis] 5 mg PO BID 08/17/17 Ezetimibe [Zetia] 10 mg PO HS 08/17/17 Fluocinonide 0.05% Cream [Lidex 0.05% Cream -] 1 applic TP DAILY #1 tube Anemia: No Asthma: No Cancer: Yes (melanoma back) Cardiac Disorders: No CVA: No COPD: No CHF: No Dementia: No Diabetes: No GI Disorders: Yes (DIVERTICULITIS) Disorders: No HTN: Yes Hypercholesterolemia: Yes Liver Disease: No Seizures: No Thyroid Disease: Yes (Hypo) - Surgical History Abdominal Surgery: No Appendectomy: No Cardiac Surgery: No Cholecystectomy: No Lung Surgery: No Neurologic Surgery: No Orthopedic Surgery: No - Suicide/Smoking/Psychosocial Hx Smoking History: Never smoked Have you smoked in the past 12 months: No Hx Alcohol Use: No Drug/Substance Use Hx: No Substance Use Type: None Hx Substance Use Treatment: No *Physical Exam - Vital Signs Last Vital Signs Temp Pulse Resp BP Pulse Ox 97.6 F 74 16 128/73 99 09/09/17 12:03 09/09/17 12:03 09/09/17 12:03 09/09/17 12:03 09/09/17 12:03 ED Treatment Course - LABORATORY CBC & Chemistry Diagram: 09/09/17 13:25 09/09/17 13:25 Medical Decision Making - Medical Decision Making 77 year old female with recent thrombectomy on eliquis complaining of orange stools and worsening yellow skin color and elevated direct bili + total bilirubin and transaminitis with alkaline phosphatemia concerning for hepatic or cholangic pathology. Will admit under Dr. Moreno pending RUQ US. Patient has stable VS and other labs WNL. 09/09/17 16:13 *DC/Admit/Observation/Transfer Diagnosis at time of Disposition: Hyperbilirubinemia - Discharge Dispostion Condition at time of disposition: Stable Admit: Yes - Referrals - Patient Instructions - Post Discharge Activity
--- NOTE | 2017-09-09 12:38 | PDOC ---
Attending Attestation - Medical Decision Making 09/09/17 14:[address] Faviola Gresham, at , case discussed. <Thomas Dhaliwal - Last Filed: 09/09/17 14:48> - Resident Resident Name: Latisha Brower - ED Attending Attestation I have performed the following: I have examined & evaluated the patient, The case was reviewed & discussed with the resident, I agree w/resident's findings & plan, Exceptions are as noted - HPI HPI: 09/09/17 14:06 77-year-old female with history of hypertension, thyroid disorder, unprovoked left lower extremity DVT on eliquis status post lobectomy several weeks ago presents with orange color stool since yesterday. The patient noted that she was having discoloration of her urine in her stools but is not taking any additional medications. Patient denies any pain, dizziness, nausea, vomiting. Patient's grandson did note that the skin was becoming yellowish discoloration. Came to the ED at the advice of the patient's primary care physician. - Physicial Exam PE: 09/09/17 14:12 GENERAL: Awake, alert, and fully oriented, in no acute distress. HEAD: No signs of trauma EYES: PERRLA, EOMI, sclera anicteric, conjunctiva clear ENT: Auricles normal inspection, hearing grossly normal, nares patent, oropharynx clear without exudates. NECK: Normal ROM, supple, no lymphadenopathy, JVD, or masses LUNGS: Breath sounds equal, clear to auscultation bilaterally. No wheezes, and no crackles HEART: Regular rate and rhythm, normal S1 and S2, no murmurs, rubs or gallops ABDOMEN: Soft, nontender, normoactive bowel sounds. No guarding, no rebound. No masses EXTREMITIES: Normal range of motion, no edema. No clubbing or cyanosis. No cords, erythema, or tenderness NEUROLOGICAL: Cranial nerves II through XII grossly intact. Normal speech, normal gait SKIN: Warm, Dry, normal turgor, no rashes . ?Jaundice? - Medical Decision Making 09/09/17 14:14 Vital Signs Temp Pulse Resp BP Pulse Ox 97.6 F 74 16 128/73 99 09/09/17 12:03 09/09/17 12:03 09/09/17 12:03 09/09/17 12:03 09/09/17 12:03 77-year-old female with discussion stool. We'll rule out GI bleed. However, given discoloration of the skin in the urine and stool, we'll need to rule out bilirubin pathology. Labs including LFTs and touch base with the patient's primary care physician. 09/09/17 14:52 CBC, BMP 09/09/17 13:25 09/09/17 13:25 CMP Sodium 133 mmol/L (136-145) L 09/09/17 13:25 Potassium 4.5 mmol/L (3.5-5.1) 09/09/17 13:25 Chloride 97 mmol/L (98-107) L 09/09/17 13:25 Carbon Dioxide 24 mmol/L (21-32) 09/09/17 13:25 Anion Gap 12 (8-16) 09/09/17 13:25 BUN 23 mg/dL (7-18) H 09/09/17 13:25 Creatinine 1.0 mg/dL (0.55-1.02) 09/09/17 13:25 Creat Clearance w eGFR 54.05 (>60) 09/09/17 13:25 Random Glucose 111 mg/dL (74-106) H 09/09/17 13:25 Calcium 9.7 mg/dL (8.5-10.1) 09/09/17 13:25 Total Bilirubin 6.1 mg/dL (0.2-1.0) H D 09/09/17 13:25 Direct Bilirubin 4.9 mg/dL (0.0-0.2) H 09/09/17 13:25 AST 519 U/L (15-37) H 09/09/17 13:25 ALT 1123 U/L (12-78) H 09/09/17 13:25 Alkaline Phosphatase 439 U/L (45-117) H 09/09/17 13:25 Total Protein 7.8 g/dl (6.4-8.2) 09/09/17 13:25 Albumin 3.8 g/dl (3.4-5.0) 09/09/17 13:25 Lipase 282 U/L (73-393) 09/09/17 13:25 Guiac negative. Spoke to Dr. Gresham. Agrees with admission. Requests ruihocaryn hospitalist. Will touch base with [facility] for admission and GI for consultation. <Hermes Gilman - Last Filed: 09/09/17 14:53> Heart Score/ECG Review #1 ECG reviewed & interpreted by me at: 12:35 09/09/17 12:38 NSR 67, no std/edison, normal axis, normal intervals, QTC 416 msec <Hermes Gilman - Last Filed: 09/09/17 14:53>
[2017-09-09 13:49] LABS: EOS % 2.5 % (0-4.5); HEMATOCRIT 34.3 % (32.4-45.2); HEMOGLOBIN 11.2 GM/dL (10.7-15.3); LYMPH % 29.6 % (8-40); MCH 27.5 pg (25.7-33.7); MCHC 32.7 g/dl (32.0-36.0); MEAN CELL VOLUME 84.1 fl (80-96); MEAN PLT VOLUME 8.5 fl (7.5-11.1); MONO % 9.9 % (3.8-10.2); PLATELET COUNT 295 K/MM3 (134-434); RBC 4.08 M/mm3 (3.60-5.2); RDW 15.6 % (11.6-15.6); WHITE BLOOD COUNT 6.2 K/mm3 (4.0-10.0)
[2017-09-09 14:03] LABS: INR 1.17 (0.82-1.09); PROTHROMBIN TIME (PATIENT) 13.2 SEC (9.98-11.88)
[2017-09-09 14:06] LABS: ALBUMIN 3.8 g/dl (3.4-5.0); ANION GAP 12 (8-16); BILIRUBIN,TOTAL 6.1 mg/dL (0.2-1.0); BLOOD UREA NITROGEN 23 mg/dL (7-18); CALCIUM 9.7 mg/dL (8.5-10.1); CHLORIDE 97 mmol/L (98-107); CO2 24 mmol/L (21-32); GLUCOSE,RANDOM 111 mg/dL (74-106); SODIUM 133 mmol/L (136-145); TOT PROT 7.8 g/dl (6.4-8.2)
[2017-09-09 14:11] LABS: ALK PHOS 439 U/L (45-117); POTASSIUM 4.5 mmol/L (3.5-5.1); SGOT/AST 519 U/L (15-37); SGPT/ALT 1123 U/L (12-78)
[2017-09-09 14:35] LABS: BILIRUBIN,DIRECT 4.9 mg/dL (0.0-0.2)
[2017-09-09 14:36] LABS: LIPASE 282 U/L (73-393)
--- NOTE | 2017-09-09 15:24 | PDOC ---
*Physical Exam - Vital Signs Last Vital Signs Temp Pulse Resp BP Pulse Ox 97.6 F 74 16 128/73 99 09/09/17 12:03 09/09/17 12:03 09/09/17 12:03 09/09/17 12:03 09/09/17 12:03 ED Treatment Course - LABORATORY CBC & Chemistry Diagram: 09/09/17 13:25 09/09/17 13:25 - ADDITIONAL ORDERS Additional order review: Laboratory Results 09/09/17 09/09/17 09/09/17 13:25 13:25 13:25 PT with INR 13.20 H INR 1.17 H Sodium 133 L Potassium 4.5 Chloride 97 L Carbon Dioxide 24 Anion Gap 12 BUN 23 H Creatinine 1.0 Creat Clearance w eGFR 54.05 Random Glucose 111 H Calcium 9.7 Total Bilirubin 6.1 H D Direct Bilirubin 4.9 H AST 519 H ALT 1123 H Alkaline Phosphatase 439 H Total Protein 7.8 Albumin 3.8 Lipase 282 Stool Occult Blood Negative Blood Type Antibody Screen 09/09/17 13:01 PT with INR INR Sodium Potassium Chloride Carbon Dioxide Anion Gap BUN Creatinine Creat Clearance w eGFR Random Glucose Calcium Total Bilirubin Direct Bilirubin AST ALT Alkaline Phosphatase Total Protein Albumin Lipase Stool Occult Blood Blood Type B NEGATIVE Antibody Screen Negative 09/09/17 13:25 RBC 4.08 MCV 84.1 MCHC 32.7 RDW 15.6 D MPV 8.5 Neutrophils % 57.0 Lymphocytes % 29.6 Monocytes % 9.9 Eosinophils % 2.5 Basophils % 1.0 Medical Decision Making - Medical Decision Making 09/09/17 15:22 I had spoke with Dr. Moreno. He accepts patient to med/surg admission. Case discussed in detail with admitting physician including history, physical exam and ancillary studies. Admitting physician has assumed care for the patient, will follow all pending diagnostics and will complete the evaluation and treatment. *DC/Admit/Observation/Transfer Diagnosis at time of Disposition: Hyperbilirubinemia - Discharge Dispostion Condition at time of disposition: Stable Admit: Yes - Referrals Referrals: Faviola Gresham MD [Primary Care Provider] - - Patient Instructions - Post Discharge Activity
[2017-09-09] MEDS ORDERED: ONDANSETRON 4 MG/2 ML VIAL IVPUSH PRN (16:29)
[2017-09-09] MEDS ORDERED: HEPARIN NA (PORCINE) 5,000 UNITS/ML 1ML VIAL IVPUSH PRN (16:42)
--- NOTE | 2017-09-09 16:43 | HP ---
Admitting History and Physical - Primary Care Physician PCP: Faviola Gresham - Admission Chief Complaint: I'm yellow History of Present Illness: Mrs Art is a very pleasant 77 year old female who comes in from the office for jaundice and orange stools. She says that since discharge she underwent thrombectomy of her DVT and most was cleared, but there was an area that was not amenable to thrombolysis. She has been doing well and following up with her outpatient desk attendant who wants to do a work up for her DVT, however she noted that she began to appear yellow. It was minor at first but increased. Yesterday she began having very dark urine and orange stool. This prompted her to see Dr Gresham who sent her to the ER for evaluation. She says that she has decreased appetite but no pain. She has L ankle pain associated with this. She denies fevers, chills, lightheadedness, dizziness, passing out, chest pain, shortness of breath, nausea, vomiting, diarrhea, constipation, or swelling. History Source: Patient Limitations to Obtaining History: No Limitations - Past Medical History Cardiovascular: Yes: HTN, Hyperlipdemia Heme/Onc: Yes: Hypercoaguable State Endocrine: Yes: Hypothyroidism - Past Surgical History Additional Past Surgical History: thrombectomy - Smoking History Smoking history: Never smoked Have you smoked in the past 12 months: No - Alcohol/Substance Use Hx Alcohol Use: No History of Substance Use: reports: None - Social History Usual Living Arrangement: Yes: With Spouse ADL: Independent History of Recent Travel: No Home Medications - Allergies Allergies/Adverse Reactions: Allergies Allergy/AdvReac Type Severity Reaction Status Date / Time latex Allergy Rash Verified 09/09/17 12:03 - Home Medications Home Medications: Ambulatory Orders Thyroid,Pork [[place] Thyroid] 60 mg PO DAILY 08/30/14 Valsartan [Diovan] 160 mg PO DAILY #90 tablet 07/26/17 Apixaban [Eliquis] 5 mg PO BID 08/17/17 Ezetimibe [Zetia] 10 mg PO HS 08/17/17 Fluocinonide 0.05% Cream [Lidex 0.05% Cream -] 1 applic TP DAILY #1 tube Family Disease History - Family Disease History Family Disease History: Heart Disease: Father Review of Systems Findings/Remarks: Full review of systems obtained, as per HPI and otherwise negative Physical Examination Vital Signs: Vital Signs Temperature 36.4 C 09/09/17 12:03 Pulse Rate 74 09/09/17 12:03 Respiratory Rate 16 09/09/17 12:03 Blood Pressure 128/73 09/09/17 12:03 O2 Sat by Pulse Oximetry (%) 99 09/09/17 12:03 Constitutional: Yes: Well Nourished, No Distress, Calm Eyes: Yes: EOM Intact, PERRL, Sclera Icterus HENT: Yes: Atraumatic, Normocephalic, Other (sublingual jaundice) Cardiovascular: Yes: Regular Rate and Rhythm. No: Gallop, Murmur, Rub Respiratory: Yes: Regular, CTA Bilaterally. No: Rales, Rhonchi, Wheezes Gastrointestinal: Yes: Normal Bowel Sounds, Soft. No: Distention, Tenderness Extremities: Yes: WNL Edema: No Integumentary: Yes: Jaundice Labs: CBC, BMP 09/09/17 13:25 09/09/17 13:25 Imaging - Results Ultrasound: Report Reviewed Problem List - Problems (1) Hyperbilirubinemia Assessment/Plan: -considering recent clot and now painless jaundice, concern for malignancy -case d/w GI and surgery -admit to med/surg -MRCP with contrast ordered -will make NPO currently for MRCP -follow LFTs Code(s): E80.6 - OTHER DISORDERS OF BILIRUBIN METABOLISM (2) Elevated LFTs Assessment/Plan: -as above Code(s): R79.89 - OTHER SPECIFIED ABNORMAL FINDINGS OF BLOOD CHEMISTRY (3) DVT (deep venous thrombosis) Assessment/Plan: -will hold eliquis at this time for possible procedures -also with <1% chance of causing elevated LFTs, however much less likely with presentation -patient has not taken her eliquis today -safe to start heparin gtt Code(s): I82.409 - ACUTE EMBOLISM AND THOMBOS UNSP DEEP VN UNSP LOWER EXTREMITY Qualifiers: (4) HTN (hypertension) Assessment/Plan: -continue valsartan Code(s): I10 - ESSENTIAL (PRIMARY) HYPERTENSION (5) Hypothyroid Assessment/Plan: -continue thyroid replacement Code(s): E03.9 - HYPOTHYROIDISM, UNSPECIFIED
--- NOTE | 2017-09-09 17:44 | CON.GI ---
Consult Consult Specialty:: GI: Dr. Anderson for Dr. Gutiérrez Referred by:: Dr. Gavin Moreno Reason for Consultation:: Jaundice - History of Present Illness Chief Complaint: "My grandson said my eyes were turning yellow" History of Present Illness: Ms. Art is a 77 year old woman seeking GI evaluation. 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 Her urine was noted to be darker as well. Her grandson noted her eyes turning yellow prompting her to seek evaluation. She denied any nausea, vomiting or abdominal pain. She has had a diminished appetite of late and states that in the end of June she weighed 176 pounds ( current weight 161). At that time at the end of June she was diagnosed with an unprovoked left leg DVT and started on eliquis. She otherwise denies any change in medications, OTC supplements, recent travel, change in diet or recent sick contacts. In the ER today, she was noted to have a normal CBC with bilirubin of 6.1, alkaline phosphatase of 439 and elevated transaminases. She is followed by Dr. Bobby Gutiérrez who last performed colonoscopy 3-4 years ago (Ms. Marroquin states that the colonoscopy and her previous studies have been normal aside from diverticulosis). She has never had an upper endoscopy and there is no family history of colorectal cancer or other GI malignancy. - History Source History Provided By: Patient, Medical Record Limitations to Obtaining History: No Limitations - Past Medical History Cardio/Vascular: Yes: HTN, Hyperlipdemia Gastrointestinal: Yes: Diverticulosis (wiht episodes of diverticulitis in the past. has been to ER however never admitted for this.) Heme/Onc: Yes: Other (Unprovoked left LE DVT 07/14) Endocrine: Yes: Hypothyroidism Dermatology: Yes: Melanoma (Left neck that she states was excised as was an involved left axillary lymph node 10 years ago. Treated at [facility] with vaccine trial) - Past Surgical History Additional Surgical History: As above, excision of melanoma with involvement of left axillary lymphnode - Alcohol/Substance Use Hx Alcohol Use: No History of Substance Use: reports: None - Smoking History Smoking history: Never smoked Have you smoked in the past 12 months: No - Social History Usual Living Arrangement: With Spouse ADL: Independent Occupation: Retired [employer] of : [employer] History of Recent Travel: No Home Medications - Allergies Allergies/Adverse Reactions: Allergies Allergy/AdvReac Type Severity Reaction Status Date / Time latex Allergy Rash Verified 09/09/17 12:03 - Home Medications Home Medications: Ambulatory Orders Thyroid,Pork [[place] Thyroid] 60 mg PO DAILY 08/30/14 Valsartan [Diovan] 160 mg PO DAILY #90 tablet 07/26/17 Apixaban [Eliquis] 5 mg PO BID 08/17/17 Ezetimibe [Zetia] 10 mg PO HS 08/17/17 Fluocinonide 0.05% Cream [Lidex 0.05% Cream -] 1 applic TP DAILY #1 tube Family Disease History - Family Disease History Family Disease History: Heart Disease: Father (: 70's: PNA), CA: Mother ( 89: Leukemia), Other: Father, Brother (2: 1 on anticoagulation for unclear cause, 1 healthy), Son (3:, 1 with CAD, 2 healthy) Other Family History: No family history of colorectal cancer or other GI malignancy Review of Systems - Review of Systems Constitutional: reports: Loss of Appetite, Unintentional Wgt. Loss. 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 denies: Abdominal Pain, Bloating, Constipation, Dysphagia, Melena , Nausea, Rectal Bleeding, Vomiting, Vomiting Blood Physical Exam-GI Vital Signs: Vital Signs Temperature 97.6 F 09/09/17 12:03 Pulse Rate 74 09/09/17 12:03 Respiratory Rate 16 09/09/17 12:03 Blood Pressure 128/73 09/09/17 12:03 O2 Sat by Pulse Oximetry (%) 99 09/09/17 12:03 Constitutional: Yes: Calm Eyes: Yes: Sclera Icterus HENT: No: Thrush Neck: Yes: Supple Cardiovascular: Yes: Regular Rate and Rhythm. No: Murmur Respiratory: Yes: CTA Bilaterally Gastrointestinal Inspection: No: Distention, Scars ...Auscultate: Yes: Normoactive Bowel Sounds ...Palpate: Yes: Soft. No: Guarding, Hepatomegaly, Splenomegaly, Tenderness ...Percussion: No: Tympanitic Edema: No (No LE edema) Neurological: Yes: Alert, Oriented Labs: CBC, BMP 09/09/17 13:25 09/09/17 13:25 INR, PTT INR 1.17 (0.82-1.09) H 09/09/17 13:25 Hepatic Panel Total Bilirubin 6.1 mg/dL (0.2-1.0) H D 09/09/17 13:25 Direct Bilirubin 4.9 mg/dL (0.0-0.2) H 09/09/17 13:25 AST 519 U/L (15-37) H 09/09/17 13:25 ALT 1123 U/L (12-78) H 09/09/17 13:25 Alkaline Phosphatase 439 U/L (45-117) H 09/09/17 13:25 Albumin 3.8 g/dl (3.4-5.0) 09/09/17 13:25 Imaging - Results Ultrasound: Report Reviewed (Distended GB with sludge. Dilated intra/ extrahepatic bilary ducts with CBD 1.5cm) Problem List - Problems (1) Obstructive jaundice Assessment/Plan: Suspected obstructive process given associated biliary tract dilatation. I explained this to Ms. Art and discussed further evaluation and alleviation of the obstruiction through ERCP. We discussed potential risks of the procedure like bt not limited to bleeding, perforation requiring surgery to repair, infection, pancreatitis and sedation medication effects all of which could be potentially life threatening. The fact that this is a painless jaundice in the back ground of recently unprovoked DVT is concerning for a malignant process and I did explain to Ms. Art that cancer of the pancreas / biliary tract / extrinsic compression of the biliary tract along with benign processes will need to be excluded. She has agreed to the ERCP. For now: I ordered Hepatitis A/B/C serologies Contrast MRI with MRCP has been ordered by Dr. Moreno Ms. Art did not take her eliquis today. It will continue to be held and She will be started on Lovenox ERCP planned tentatively for Tuesday 09/12. Lovenox will need to be held for Tuesday AM OK for low fat diet Monitor coags / LFTs Code(s): K83.8 - OTHER SPECIFIED DISEASES OF BILIARY TRACT
[2017-09-09 18:05] VITALS: BMI 25.9
[2017-09-09] MEDS: HEPARIN - 25,000 UNIT in SODIUM CHLORIDE 495 ML IV SCH ×2 (18:37→20:54)
--- NOTE | 2017-09-09 20:28 | HOSP ---
Physical Examination Vital Signs: Vital Signs Temperature 98.8 F 09/09/17 17:52 Pulse Rate 80 09/09/17 17:52 Respiratory Rate 20 09/09/17 17:52 Blood Pressure 163/89 09/09/17 17:52 O2 Sat by Pulse Oximetry (%) 100 09/09/17 17:52 Labs: CBC, BMP 09/09/17 13:25 09/09/17 13:25
[2017-09-09] MEDS ORDERED: diphenhydrAMINE HCL 25 MG CAPSULE (FP) PO ONE (20:30)
[2017-09-09] MEDS: HEPARIN NA (PORCINE) 5,000 UNITS/ML 1ML VIAL IVPUSH PRN (20:53)
[2017-09-09] MEDS: RANITIDINE HCL 150 MG TABLET (FP) PO SCH (21:55)
[2017-09-09 22:44] LABS: INR 1.16 (0.82-1.09); PROTHROMBIN TIME (PATIENT) 13.1 SEC (9.98-11.88)
[2017-09-10] MEDS ORDERED: METOCLOPRAMIDE HCL INJECTION 10 MG/2 ML VIAL IVPUSH ONE (03:20)
[2017-09-10] MEDS: HEPARIN NA (PORCINE) 5,000 UNITS/ML 1ML VIAL IVPUSH PRN (03:47)
[2017-09-10] MEDS: HEPARIN - 25,000 UNIT in SODIUM CHLORIDE 495 ML IV SCH (03:47)
[2017-09-10] MEDS ORDERED: PT OWN MED DRAWER 7, Y5N ONE ×5 (05:47→21:57)
[2017-09-10] MEDS: THYROID 60 MG TABLET PO SCH (06:14)
[2017-09-10 07:54] LABS: INR 1.13 (0.82-1.09); PROTHROMBIN TIME (PATIENT) 12.8 SEC (9.98-11.88)
[2017-09-10 07:57] LABS: ACTIVATED PTT 58.1 SECONDS (26.9-34.4)
[2017-09-10 08:03] LABS: BASO % 1.6 % (0-2.0); EOS % 1.9 % (0-4.5); HEMATOCRIT 32.4 % (32.4-45.2); HEMOGLOBIN 10.9 GM/dL (10.7-15.3); LYMPH % 38.5 % (8-40); MCH 27.7 pg (25.7-33.7); MCHC 33.5 g/dl (32.0-36.0); MEAN CELL VOLUME 82.7 fl (80-96); MEAN PLT VOLUME 8.7 fl (7.5-11.1); MONO % 11.6 % (3.8-10.2); NEUT % 46.4 % (42.8-82.8); PLATELET COUNT 316 K/MM3 (134-434); RBC 3.92 M/mm3 (3.60-5.2); RDW 15.5 % (11.6-15.6); WHITE BLOOD COUNT 5.5 K/mm3 (4.0-10.0)
[2017-09-10 08:09] LABS: CHLORIDE 100 mmol/L (98-107); POTASSIUM 3.9 mmol/L (3.5-5.1); SODIUM 133 mmol/L (136-145)
[2017-09-10 08:18] LABS: ANION GAP 7 (8-16); BLOOD UREA NITROGEN 14 mg/dL (7-18); CALCIUM 9.1 mg/dL (8.5-10.1); CO2 26 mmol/L (21-32); CREATININE 0.7 mg/dL (0.55-1.02); GLUCOSE,RANDOM 113 mg/dL (74-106); MAGNESIUM 1.9 mg/dL (1.8-2.4); PHOSPHOROUS 3.4 mg/dL (2.5-4.9)
[2017-09-10 08:26] LABS: ALBUMIN 3.4 g/dl (3.4-5.0); BILIRUBIN,DIRECT 5.5 mg/dL (0.0-0.2); BILIRUBIN,TOTAL 6.8 mg/dL (0.2-1.0)
[2017-09-10 08:47] LABS: LIPASE 326 U/L (73-393)
[2017-09-10] MEDS ORDERED: VALSARTAN 160 MG TABLET (UD) PO SCH (10:00)
[2017-09-10] MEDS: RANITIDINE HCL 150 MG TABLET (FP) PO SCH ×2 (10:04→22:07)
--- NOTE | 2017-09-10 10:50 | PN ---
Progress Note, Physician Chief Complaint: No new complaints except Itching - Current Medication List Current Medications: Active Medications Fluocinonide (Lidex 0.05% Cream -) 1 applic TP DAILY [facility] Ondansetron HCl (Zofran Injection) 4 mg IVPUSH Q6H PRN PRN Reason: NAUSEA Ranitidine HCl (Zantac -) 150 mg PO BID [facility] Last Admin: 09/10/17 10:04 Dose: 150 mg Thyroid ([place] Thyroid -) 60 mg PO DAILY@0600 [facility] Last Admin: 09/10/17 06:14 Dose: 60 mg Valsartan (Diovan -) 160 mg PO DAILY [facility] Last Admin: 09/10/17 10:03 Dose: 160 mg - Objective Vital Signs: Vital Signs Temperature 98.2 F 09/10/17 05:56 Pulse Rate 86 09/10/17 05:56 Respiratory Rate 20 09/10/17 05:56 Blood Pressure 145/79 09/10/17 05:56 O2 Sat by Pulse Oximetry (%) 100 09/09/17 21:00 Elderly F no C/o chest pain or SOB HEENT: Icterus +, PERRLA EOMI NECK: No JVD no Bruit CHEST: CTA B/L CVS: S1S2 R no m/g/r ABD: No distention, non tender Bs + EXT: Left Le trace edema, Pulses +2, INSTRUCTIONAL CONSULTANT: AOX3 non focal Labs: CBC, BMP 09/10/17 07:12 09/10/17 07:12 INR, PTT INR 1.13 (0.82-1.09) 09/10/17 07:12 - ....Imaging Ultrasound: Report Reviewed (CBD Dilattaion) MRI: Report Reviewed (MRCP Report Pending) Problem List - Problems (1) Extrahepatic obstructive biliary disease Assessment/Plan: patient present with obstructive jaundice with CBD Dilatation, , painless obstructive jaundice with H/O extensive DVT high suspicion for malignant lesion, MRCP report is pending F/U GI Recommendation schedule for ERCP on Tuesday Code(s): K83.1 - OBSTRUCTION OF BILE DUCT (2) DVT (deep venous thrombosis) Assessment/Plan: Left LE DVT S/P mechanical thrombectomy and on 08/17/2017 on Lovenox will hold Tuesday am dose for ERCP Code(s): I82.409 - ACUTE EMBOLISM AND THOMBOS UNSP DEEP VN UNSP LOWER EXTREMITY Qualifiers: DVT location: lower extremity Affected thrombotic vein of extremity: unspecified vein of extremity Chronicity: unspecified Laterality: left Qualified Code(s): I82.402 - Acute embolism and thrombosis of unspecified deep veins of left lower extremity (3) Hypothyroid Assessment/Plan: cont Levothyroxine Code(s): E03.9 - HYPOTHYROIDISM, UNSPECIFIED (4) HTN (hypertension) Assessment/Plan: Cont Home meds Code(s): I10 - ESSENTIAL (PRIMARY) HYPERTENSION Qualifiers: Hypertension type: essential hypertension Qualified Code(s): I10 - Essential (primary) hypertension
[2017-09-10] MEDS ORDERED: ENOXAPARIN NA (PORCINE) 80 MG/0.8 ML DISP.SYRIN SQ SCH (11:00)
[2017-09-10] MEDS: FLUOCINONIDE 0.05% CREAM (15 GM TUBE) TP SCH (14:53)
[2017-09-10] MEDS ORDERED: HYDROCHLOROTHIAZIDE 25 MG TABLET (FP) PO SCH (16:00)
--- NOTE | 2017-09-10 16:57 | CONSULT ---
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 In the last week, she has noticed a change in her bowel movements to a wheel press operator color and more "shredded" appearance, and then she had one with some pumpkin-orange coloring in it. Her has also noticed a few days ago that the whites of her eyes appeared yellow. She saw Dr. Gresham for an appt and mentioned the above, and she thought it might be blood in her stool and suggested she come to ER, which she did yesterday. In the ER, she was afebrile, wbc normal, LFTs elevated with bili 6 (had been <1 in June) and normal lipase. She had an US, which showed sludge but no stones in the GB, and 1.5cm CBD with intra and extrahepatic biliary dilation. She was admitted to medicine, changed to a heparin drip, and had an MRCP with contrast today, which is not yet read. Labs this am show slight increases in LFTs. The patient and her (at bedside) think her eyes are less yellow today, and neither appreciated much of the yellowing of her skin. She has no abdominal pain, no f/c , occ nausea but no vomiting, and no urinary complaints. She has not had a BM today. Heparin drip was changed to full-dose Lovenox this evening, and will be held Mon am for ERCP with GI, who is also on board. Surgery was consulted pending the MRI and workup because of the jaundice and LFT elevations with gallbladder sludge. She is tolerating a diet, but requests chocolate Ensure with meals, as her appetite has also been less more recently. They report some weight loss over the last two months, but because of when her leg was very swollen, it is hard to tell how much she really lost - it may be 5-10 lbs. - History Source History Provided By: Patient Limitations to Obtaining History: No Limitations - Past Medical History Cardio/Vascular: Yes: Deep Vein Thrombosis (LLE unprovoked diagnosed 07/14, on Eliquis), HTN, Hyperlipdemia Gastrointestinal: Yes: Diverticulosis (with episodes of diverticulitis in the past. has been to ER however never admitted for this.) Reproductive: Yes: Postmenopausal ...: No Endocrine: Yes: Hypothyroidism Dermatology: Yes: Melanoma (Left upper back that was excised as was an involved left axillary lymph node afterward 10 years ago. 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 History of Recent Travel: No Home Medications - Allergies Allergies/Adverse Reactions: Allergies Allergy/AdvReac Type Severity Reaction Status Date / Time latex Allergy Rash Verified 09/09/17 12:03 - Home Medications Home Medications: Ambulatory Orders Thyroid,Pork [[place] Thyroid] 60 mg PO DAILY 08/30/14 Valsartan [Diovan] 160 mg PO DAILY #90 tablet 07/26/17 Apixaban [Eliquis] 5 mg PO BID 08/17/17 Ezetimibe [Zetia] 10 mg PO HS 08/17/17 Fluocinonide 0.05% Cream [Lidex 0.05% Cream -] 1 applic TP DAILY #1 tube Family Disease History - Family Disease History Family Disease History: Heart Disease: Father (: 70's: PNA), CA: Mother ( 89: Leukemia), Other: Father, Brother (2: 1 on anticoagulation for unclear cause, 1 healthy), Son (3:, 1 with CAD, 2 healthy) Other Family History: No family history of colorectal cancer or other GI malignancy Review of Systems - Review of Systems Constitutional: reports: Loss of Appetite (eating less overall recently per and pt), Unintentional Wgt. Loss (?5-10lbs/2 months - difficult to quantify as leg swelling also went down). denies: Chills (tends to feel cold since starting the Eliquis), Fever Eyes: reports: Other (uses bifocals mostly for reading). denies: Recent Change in Vision HENT: denies: Difficult Swallowing, Hearing Loss, Throat Pain Neck: denies: Swollen Glands, Tenderness Cardiovascular: denies: Chest Pain, Palpitations (occasionally feels like her heart races but not specifically recently) Respiratory: reports: Cough (occasional dry cough), SOB on Exertion (more noticeable as she has been recovering from recent DVT (climbing stairs at home gets her winded when it didn't used to)). denies: SOB Gastrointestinal: reports: Nausea (occasional), Other (change in bowel habits - see hpi). denies: Abdominal Pain, Constipation, Diarrhea, Vomiting Genitourinary: denies: Burning, Dysuria Musculoskeletal: denies: Back Pain, Joint Pain, Muscle Pain Neurological: denies: Dizziness, Headache Endocrine: reports: Intolerance to Cold (in last couple months), Unexplained Weight Loss (see above ?5-10#) Psychiatric: denies: Anxiety, Depression Physical Exam Vital Signs: Vital Signs Temperature 97.8 F 09/10/17 14:25 Pulse Rate 77 09/10/17 14:25 Respiratory Rate 20 09/10/17 09:00 Blood Pressure 118/67 09/10/17 14:25 O2 Sat by Pulse Oximetry (%) 100 09/10/17 09:00 Constitutional: Yes: Well Nourished, No Distress, Calm Eyes: Yes: EOM Intact, Sclera Icterus HENT: Yes: Atraumatic, Normocephalic Neck: Yes: Supple, Trachea Midline. No: Lymphadenopathy, Tenderness Cardiovascular: Yes: Regular Rate and Rhythm, Murmur (soft) Respiratory: Yes: Regular, CTA Bilaterally Gastrointestinal: Yes: Normal Bowel Sounds, Soft (mildly protuberant). No: Distention, Tenderness ...Rectal Exam: Yes: Deferred Renal/: No: CVA Tenderness - Left, CVA Tenderness - Right Breast(s): No: Other (no axillary lymphadenopathy palpable) Musculoskeletal: No: Joint Stiffness, Joint Swelling Extremities: No: Cool, Cyanosis Edema: No Peripheral Pulses WNL: Yes Integumentary: Yes: Jaundice (mild). No: Rash Neurological: Yes: Alert, Oriented Psychiatric: Yes: Alert, Oriented Labs: CBC, BMP 09/10/17 07:12 09/10/17 07:12 CMP Sodium 133 mmol/L (136-145) L 09/10/17 07:12 Potassium 3.9 mmol/L (3.5-5.1) 09/10/17 07:12 Chloride 100 mmol/L (98-107) 09/10/17 07:12 Carbon Dioxide 26 mmol/L (21-32) 09/10/17 07:12 Anion Gap 7 (8-16) L 09/10/17 07:12 BUN 14 mg/dL (7-18) 09/10/17 07:12 Creatinine 0.7 mg/dL (0.55-1.02) 09/10/17 07:12 Creat Clearance w eGFR 54.05 (>60) 09/09/17 13:25 Random Glucose 113 mg/dL (74-106) H 09/10/17 07:12 Calcium 9.1 mg/dL (8.5-10.1) 09/10/17 07:12 Phosphorus 3.4 mg/dL (2.5-4.9) 09/10/17 07:12 Magnesium 1.9 mg/dL (1.8-2.4) 09/10/17 07:12 Total Bilirubin 6.8 mg/dL (0.2-1.0) H 09/10/17 07:12 Direct Bilirubin 5.5 mg/dL (0.0-0.2) H 09/10/17 07:12 AST 553 U/L (15-37) H 09/10/17 07:12 ALT 1100 U/L (12-78) H 09/10/17 07:12 Alkaline Phosphatase 406 U/L (45-117) H 09/10/17 07:12 Total Protein 7.0 g/dl (6.4-8.2) 09/10/17 07:12 Albumin 3.4 g/dl (3.4-5.0) 09/10/17 07:12 Lipase 326 U/L (73-393) 09/10/17 07:12 INR, PTT INR 1.13 (0.82-1.09) 09/10/17 07:12 hepatitis panel pending Imaging - Results Ultrasound: Report Reviewed MRI: Image Reviewed (images seen - appears to be possible abnormality in region of distal cbd/pancreatic head with biliary dilation, distended gallbladder - await formal report) Problem List - Problems (1) Extrahepatic obstructive biliary disease Assessment/Plan: Awaiting MRI/MRCP report GI on board - plans for likely ERCP Tuesday with biopsies/brushings as indicated Given pt's h/o melanoma and recent unprovoked DVT, malignant obstruction is high in the differential gallbladder/gallstone/sludge etiology much less likely will follow results of workup general surgery intervention not currently indicated will remain available as needed Thank you for the opportunity to participate in the care of this patient. Code(s): K83.1 - OBSTRUCTION OF BILE DUCT (2) Hyperbilirubinemia Assessment/Plan: slightly up today, but jaundice mild and subjectively improved continue to trend labs Code(s): E80.6 - OTHER DISORDERS OF BILIRUBIN METABOLISM (3) DVT (deep venous thrombosis) Assessment/Plan: on full anticoagulation for now - hold for ERCP and thereafter until cleared by GI to resume NO SCD's may be able to consider prophylactic dosing of lovenox sometime after procedure until cleared to return to full anticoagulation Code(s): I82.409 - ACUTE EMBOLISM AND THOMBOS UNSP DEEP VN UNSP LOWER EXTREMITY Qualifiers: DVT location: lower extremity Affected thrombotic vein of extremity: unspecified vein of extremity Chronicity: unspecified Laterality: left Qualified Code(s): I82.402 - Acute embolism and thrombosis of unspecified deep veins of left lower extremity (4) History of malignant melanoma Assessment/Plan: left upper back and left axillary lymph node Code(s): Z85.820 - PERSONAL HISTORY OF MALIGNANT MELANOMA OF SKIN (5) HTN (hypertension) Code(s): I10 - ESSENTIAL (PRIMARY) HYPERTENSION Qualifiers: Hypertension type: essential hypertension Qualified Code(s): I10 - Essential (primary) hypertension (6) Hypothyroid Code(s): E03.9 - HYPOTHYROIDISM, UNSPECIFIED Qualifiers: Hypothyroidism type: acquired Qualified Code(s): E03.9 - Hypothyroidism, unspecified
[2017-09-10] MEDS: ENOXAPARIN NA (PORCINE) 80 MG/0.8 ML DISP.SYRIN SQ SCH (18:26)
--- NOTE | 2017-09-10 19:18 | PN ---
GI Progress Note Subjective: No acute events No abdominal pain No diarrhea MRI performed today - Objective Vital Signs: Vital Signs Temperature 97.8 F 09/10/17 14:25 Pulse Rate 77 09/10/17 14:25 Respiratory Rate 20 09/10/17 09:00 Blood Pressure 118/67 09/10/17 14:25 O2 Sat by Pulse Oximetry (%) 100 09/10/17 09:00 Constitutional: Calm Eyes: Yes: Sclera Icterus Cardiovascular: Yes: Regular Rate and Rhythm Respiratory: Yes: CTA Bilaterally Gastrointestinal Inspection: No: Distention ...Auscultate: Yes: Normoactive Bowel Sounds ...Palpate: No: Hepatomegaly, Splenomegaly, Tenderness Edema: No (No LE edema) Neurological: Yes: Alert, Oriented Labs: CBC, BMP 09/10/17 07:12 09/10/17 07:12 INR, PTT INR 1.13 (0.82-1.09) 09/10/17 07:12 Hepatic Panel Total Bilirubin 6.8 mg/dL (0.2-1.0) H 09/10/17 07:12 Direct Bilirubin 5.5 mg/dL (0.0-0.2) H 09/10/17 07:12 AST 553 U/L (15-37) H 09/10/17 07:12 ALT 1100 U/L (12-78) H 09/10/17 07:12 Alkaline Phosphatase 406 U/L (45-117) H 09/10/17 07:12 Albumin 3.4 g/dl (3.4-5.0) 09/10/17 07:12 Problem List - Problems (1) Obstructive jaundice Assessment/Plan: Awaiting MRI/MRCP result Lovenox held for Tuesday AM Likely for ERCP Tuesday 09/12 Code(s): K83.8 - OTHER SPECIFIED DISEASES OF BILIARY TRACT
[2017-09-10] MEDS: TIMOLOL 0.5% OPHTHALMIC SOL 5 ML BOTTLE OU SCH (22:07)
[2017-09-10] MEDS: BRIMONIDINE TARTRATE 0.2% OPHTHALMIC 5 ML BOTTLE OU SCH (22:08)
[2017-09-11] MEDS ORDERED: PT OWN MED DRAWER 7, Y5N ONE ×5 (05:51→20:21)
[2017-09-11] MEDS: ENOXAPARIN NA (PORCINE) 80 MG/0.8 ML DISP.SYRIN SQ SCH ×2 (06:03→17:17)
[2017-09-11] MEDS: THYROID 60 MG TABLET PO SCH (06:04)
[2017-09-11 06:38] LABS: HBSAG SCREEN Negative (Negative); HEP B CORE AB, TOT Negative (Negative)
[2017-09-11 07:59] LABS: BASO % 2.1 % (0-2.0); EOS % 3.5 % (0-4.5); HEMATOCRIT 30.7 % (32.4-45.2); HEMOGLOBIN 10.4 GM/dL (10.7-15.3); MCHC 33.8 g/dl (32.0-36.0); MEAN PLT VOLUME 8.1 fl (7.5-11.1); MONO % 11.5 % (3.8-10.2); NEUT % 44.9 % (42.8-82.8); PLATELET COUNT 280 K/MM3 (134-434); RBC 3.69 M/mm3 (3.60-5.2); RDW 15.7 % (11.6-15.6); WHITE BLOOD COUNT 4.9 K/mm3 (4.0-10.0)
[2017-09-11 08:08] LABS: ALBUMIN 3.3 g/dl (3.4-5.0); ANION GAP 6 (8-16); BILIRUBIN,TOTAL 6.7 mg/dL (0.2-1.0); BLOOD UREA NITROGEN 14 mg/dL (7-18); CALCIUM 8.8 mg/dL (8.5-10.1); CHLORIDE 100 mmol/L (98-107); CO2 27 mmol/L (21-32); CREATININE 0.7 mg/dL (0.55-1.02); GLUCOSE,RANDOM 115 mg/dL (74-106); POTASSIUM 4.5 mmol/L (3.5-5.1); SODIUM 133 mmol/L (136-145); TOT PROT 6.5 g/dl (6.4-8.2)
[2017-09-11 08:16] LABS: ALK PHOS 397 U/L (45-117)
[2017-09-11 08:20] LABS: CHLORIDE 100 mmol/L (98-107); POTASSIUM 4.3 mmol/L (3.5-5.1); SODIUM 132 mmol/L (136-145)
[2017-09-11 08:35] LABS: ALBUMIN 3.3 g/dl (3.4-5.0); ALK PHOS 388 U/L (45-117); ANION GAP 7 (8-16); BILIRUBIN,DIRECT 5.6 mg/dL (0.0-0.2); BILIRUBIN,TOTAL 6.7 mg/dL (0.2-1.0); BLOOD UREA NITROGEN 14 mg/dL (7-18); CALCIUM 8.7 mg/dL (8.5-10.1); CO2 25 mmol/L (21-32); CREATININE 0.7 mg/dL (0.55-1.02); GLUCOSE,RANDOM 111 mg/dL (74-106); TOT PROT 6.5 g/dl (6.4-8.2)
[2017-09-11 08:42] LABS: SGOT/AST 454 U/L (15-37); SGPT/ALT 1025 U/L (12-78)
[2017-09-11 08:48] LABS: SGOT/AST 452 U/L (15-37); SGPT/ALT 977 U/L (12-78)
[2017-09-11] MEDS: RANITIDINE HCL 150 MG TABLET (FP) PO SCH ×2 (09:24→21:43)
[2017-09-11] MEDS: FLUOCINONIDE 0.05% CREAM (15 GM TUBE) TP SCH (09:27)
[2017-09-11] MEDS: BRIMONIDINE TARTRATE 0.2% OPHTHALMIC 5 ML BOTTLE OU SCH ×2 (09:30→21:43)
[2017-09-11] MEDS: TIMOLOL 0.5% OPHTHALMIC SOL 5 ML BOTTLE OU SCH ×2 (09:31→21:43)
[2017-09-11] MEDS ORDERED: DIOVAN HCT PO SCH (10:00)
--- NOTE | 2017-09-11 12:53 | PN ---
Progress Note, Physician Chief Complaint: No new complaints except Itching - Current Medication List Current Medications: Active Medications Brimonidine Tartrate ([place] 0.2% -) 1 drop OU BID [facility] Last Admin: 09/11/17 09:30 Dose: Not Given Enoxaparin Sodium (Lovenox -) 70 mg SQ Q12H [facility] Last Admin: 09/11/17 06:03 Dose: 70 mg Fluocinonide (Lidex 0.05% Cream -) 1 applic TP DAILY [facility] Last Admin: 09/11/17 09:27 Dose: 1 applic Non-Formulary Med ( (Diovan Hct 160/25)) 1 each PO DAILY [facility] Last Admin: 09/11/17 09:24 Dose: 1 each Ondansetron HCl (Zofran Injection) 4 mg IVPUSH Q6H PRN PRN Reason: NAUSEA Ranitidine HCl (Zantac -) 150 mg PO BID [facility] Last Admin: 09/11/17 09:24 Dose: 150 mg Thyroid ([place] Thyroid -) 60 mg PO DAILY@0600 [facility] Last Admin: 09/11/17 06:04 Dose: 60 mg Timolol Maleate (Timoptic 0.5%) 1 drop OU BID [facility] Last Admin: 09/11/17 09:31 Dose: Not Given - Objective Vital Signs: Vital Signs Temperature 98.6 F 09/11/17 06:19 Pulse Rate 76 09/11/17 06:19 Respiratory Rate 20 09/11/17 06:19 Blood Pressure 134/72 09/11/17 06:19 O2 Sat by Pulse Oximetry (%) 100 09/10/17 21:00 Elderly F no C/o chest pain or SOB HEENT: Icterus +, PERRLA EOMI NECK: No JVD no Bruit CHEST: CTA B/L CVS: S1S2 R no m/g/r ABD: No distention, non tender Bs + EXT: Left Le trace edema, Pulses +2, HALL DIRECTOR: AOX3 non focal Labs: CBC, BMP 09/11/17 07:15 09/11/17 07:15 INR, PTT INR 1.13 (0.82-1.09) 09/10/17 07:12 Problem List - Problems (1) Extrahepatic obstructive biliary disease Assessment/Plan: patient present with obstructive jaundice with CBD Dilatation, , painless obstructive jaundice with H/O extensive DVT MRCP shows 3.2 cm pancreatic head ass compressing distal CBD , most likely Ca Pancreas,, Oncology consult, F/U GI Recommendation if they want to Code(s): K83.1 - OBSTRUCTION OF BILE DUCT (2) DVT (deep venous thrombosis) Assessment/Plan: Left LE DVT S/P mechanical thrombectomy and on 08/17/2017 on Lovenox will hold Tuesday am dose for ERCP Code(s): I82.409 - ACUTE EMBOLISM AND THOMBOS UNSP DEEP VN UNSP LOWER EXTREMITY Qualifiers: DVT location: lower extremity Affected thrombotic vein of extremity: unspecified vein of extremity Chronicity: unspecified Laterality: left Qualified Code(s): I82.402 - Acute embolism and thrombosis of unspecified deep veins of left lower extremity (3) Hypothyroid Assessment/Plan: cont Levothyroxine Code(s): E03.9 - HYPOTHYROIDISM, UNSPECIFIED (4) HTN (hypertension) Assessment/Plan: Cont Home meds Code(s): I10 - ESSENTIAL (PRIMARY) HYPERTENSION Qualifiers: Hypertension type: essential hypertension Qualified Code(s): I10 - Essential (primary) hypertension
--- NOTE | 2017-09-11 16:20 | PN ---
Progress Note (short form) - Note Progress Note: Had d/w Ms. Art and her regarding MRI finding of a 3cm mass at the head of the pancreas. they are aware that this likely represents a malignancy. We discussed options and I felt that the best option would be having her at an institution where ERCP and if necessary possible EUS can be performed while holding anticoagulation once. [facility] options [facility], [facility] and [facility]. Ms. Cali and her seemed interested at [facility] as an option. I discussed the case with Dr. Lux Hoover and discussed MRI findings as well as her prior history of melanoma as well. He suggested transfer, dedicated triple phase CT of the abdomen tonight at [facility] followed by ERCP for decompression +/- EUS depending if there was question of vascular involvement or not from CT scan findings. This would be followed by possible whipple later in the week. and Mrs. Art were agreeable to this plan and I contacted the [facility] transfer center and initiated transfer. Problem List - Problems (1) Obstructive jaundice Code(s): K83.8 - OTHER SPECIFIED DISEASES OF BILIARY TRACT
--- NOTE | 2017-09-11 17:18 | DS ---
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 non focal Labs: CBC, BMP 09/11/17 07:15 09/11/17 07:15 Discharge Summary Reason For Visit: HYPERBILIRUBINEMIA Current Active Problems Elevated LFTs (Acute) Extrahepatic obstructive biliary disease (Acute) History of malignant melanoma (Acute) Hyperbilirubinemia (Acute) Hypothyroid (Acute) Obstructive jaundice (Acute) Hospital Course: 77 year old F H/O HTN, unproviked DVT 2 months ago S/P Mechanical thrombectomy on 08/17/2017 admitted with obstructive Jaundice abd ultrasound shows Dilated CBD, MRCP shpws 3.2 Cm, head of pancreas mass compressing over distal CBD , patient is being transfer to [facility] for higher level of care and further management. Condition: Stable - Instructions Referrals: Faviola Gresham MD [Primary Care Provider] - Disposition: TRANSFER ACUTE CARE/OTHER HOSP - Home Medications Comprehensive Discharge Medication List: Ambulatory Orders Thyroid,Pork [[place] Thyroid] 60 mg PO DAILY 08/30/14 Valsartan [Diovan] 160 mg PO DAILY #90 tablet 07/26/17 Apixaban [Eliquis] 5 mg PO BID 08/17/17 Ezetimibe [Zetia] 10 mg PO HS 08/17/17 Fluocinonide 0.05% Cream [Lidex 0.05% Cream -] 1 applic TP DAILY #1 tube
[2017-09-11 20:46] VITALS: BP 135/74; PULSE 70; TEMP 98.7
--- NOTE | 2017-09-12 12:12 | EKG ---
Test Reason : Blood Pressure : / mmHG Vent. Rate : 067 BPM Atrial Rate : 067 BPM P-R Int : 194 ms QRS Dur : 074 ms QT Int : 394 ms P-R-T Axes : 048 028 044 degrees QTc Int : 416 ms NORMAL SINUS RHYTHM NORMAL ECG WHEN COMPARED WITH ECG OF 24-JUL-2017 02:59, NO SIGNIFICANT CHANGE WAS FOUND Confirmed by ALBERT SARGENT MD ([id number]) on 09/12/2017 12:11:48 PM Referred By: Confirmed By:ALBERT SARGENT MD
== END 2017-09-11 21:30 | disposition short-term general hospital (02) | DRG 445 ==
LOC: JER 11:48 → JERBED 15:24 → J6S 16:46
PROVIDERS: ADMIT Internal Medicine; ATTEND Internal Medicine
DX: K83.8 Other specified diseases of biliary tract (principal); I82.402 Acute embolism and thrombosis of unspecified deep veins of left lower extremity; E80.6 Other disorders of bilirubin metabolism; I10 Essential (primary) hypertension; E03.9 Hypothyroidism, unspecified; K86.9 Disease of pancreas, unspecified; R79.89 Other specified abnormal findings of blood chemistry; Z85.820 Personal history of malignant melanoma of skin; E78.5 Hyperlipidemia, unspecified
CPT/HCPCS: 36415; 74182-TC; 76705-TC; 80048; 80053; 80076; 80307; 82248; 82272; 83690; 83735; 84100; 85025; 85610; 85730; 86704; 86706; 86708; 86850; 86900; 86901; 87340; 93005; 93010; 99283-25; J1644

== ENCOUNTER 2017-10-01 18:49 | Emergency (ER) | payer OTHER ==
[2017-10-01 19:07] VITALS: BMI 26.6
--- NOTE | 2017-10-01 19:42 | PDOC ---
History of Present Illness - General History Source: Patient, Family Exam Limitations: No Limitations - History of Present Illness Initial Comments: 10/01/17 20:00 The patient is a 77 year old female, with a significant past medical history of hypertension, hypothyroidism, hyperlipidemia, and pancreatic cancer, unprovoked DVT (s/p IVC filter), who presents to the emergency department with, 1 day of chest pain localized to her breast bone. The patient describes her pain as sharp and diffuse, radiating to her back. As per patients , she had a similar instance 2 months ago, however, it passed. Secondary to her symptoms, the patients reports she had chills which has since resolved. The patient is currently on chemotherapy followed by Dr. Ford. She denies recent headache or dizziness. She denies recent nausea, vomit, diarrhea or constipation. She denies recent dysuria, frequency, urgency or hematuria. She denies recent chest pain or shortness of breath. Allergies: Latex Social history: Nonsmoker. Denies EtOH use and recreational drug use. [ <Jannie Lawrence - Last Filed: 10/02/17 00:29> - General History Source: Patient, Care Provider, Family <Beth Griffin - Last Filed: 10/05/17 10:08> - General Chief Complaint: Pain, Acute Stated Complaint: UPPER ABDOMINAL/BACK PAIN Time Seen by Provider: 10/01/17 19:34 Past History <Jannie Lawrence - Last Filed: 10/02/17 00:29> - Past Medical History Anemia: No Asthma: No Cancer: Yes (melanoma back, PANCREATIC) Cardiac Disorders: No CVA: No COPD: No CHF: No DVT: Yes Dementia: No Diabetes: No GI Disorders: Yes (DIVERTICULITIS) Disorders: No HTN: Yes Hypercholesterolemia: Yes Liver Disease: No Seizures: No Thyroid Disease: Yes (Hypo) - Surgical History Abdominal Surgery: No Appendectomy: No Cardiac Surgery: No Cholecystectomy: No GI Surgery: Yes (BILE DUCT STENT PLACEMENT) Lung Surgery: No Neurologic Surgery: No Orthopedic Surgery: No - Immunization History Immunization Up to Date: Yes - Suicide/Smoking/Psychosocial Hx Smoking History: Never smoked Have you smoked in the past 12 months: No Hx Alcohol Use: No Drug/Substance Use Hx: No Substance Use Type: None Hx Substance Use Treatment: No <Beth Griffin - Last Filed: 10/05/17 10:08> - Past Medical History Allergies/Adverse Reactions: Allergies Allergy/AdvReac Type Severity Reaction Status Date / Time latex Allergy Rash Verified 10/01/17 19:02 Home Medications: Ambulatory Orders Thyroid,Pork [[place] Thyroid] 60 mg PO DAILY 08/30/14 Valsartan [Diovan] 160 mg PO DAILY #90 tablet 07/26/17 Fluocinonide 0.05% Cream [Lidex 0.05% Cream -] 1 applic TP DAILY #1 tube Enoxaparin [Lovenox -] 40 mg SQ BID 10/01/17 Review of Systems - Review of Systems Able to Perform ROS?: Yes Comments:: 10/01/17 20:00 (+)CONSTITUTIONAL: Chills (resolved). No fatigue EYES: No visual changes ENT: No ear pain, no sore throat (+)CARDIOVASCULAR: Chest wall pain. No palpitations RESPIRATORY: No cough, no SOB GI: No abdominal pain, no nausea, no vomiting, no constipation, no diarrhea GENITOURINARY: No dysuria, no frequency, no hematuria MUSKULOSKELETAL: No backpain, no joint pain, no myalgias SKIN: No rash NEURO: No headache All Other Systems: Reviewed and Negative <Jannie Lawrence - Last Filed: 10/02/17 00:29> *Physical Exam - Vital Signs Last Vital Signs Temp Pulse Resp BP Pulse Ox 98.5 F 107 H 20 153/102 96 10/01/17 19:02 10/01/17 19:02 10/01/17 19:02 10/01/17 19:02 10/01/17 19:02 - Physical Exam Comments: 10/01/17 20:02 (+)GENERAL: Pale and weak appearing. The patient is in no acute distress. HEAD: Normal with no signs of trauma. (+)EYES: Conjunctiva pale. PERRLA, EOMI, sclera anicteric. ENT: Ears normal, nares patent, oropharynx clear without exudates. Moist mucous membranes. NECK: Normal range of motion, supple without lymphadenopathy, JVD, or masses. LUNGS: Breath sounds equal, clear to auscultation bilaterally. No wheezes, and no crackles. (+)HEART: Tachycardic. Regular rhythm, normal S1 and S2 without murmur, rub or gallop. ABDOMEN: Soft, nontender, normoactive bowel sounds. No guarding, no rebound. No masses palpable. EXTREMITIES: Normal range of motion, no edema. No clubbing or cyanosis. No erythema, or tenderness. NEUROLOGICAL: Cranial nerves II through XII grossly intact. Normal speech. No focal neurological deficits. MUSCULOSKELETAL: Back non-tender to palpation, no CVA tenderness SKIN: Warm, Dry, normal turgor, no rashes or lesions noted. <Jannie Lawrence - Last Filed: 10/02/17 00:29> - Vital Signs Last Vital Signs Temp Pulse Resp BP Pulse Ox 98.5 F 107 H 20 153/102 96 10/01/17 19:02 10/01/17 19:02 10/01/17 19:02 10/01/17 19:02 10/01/17 19:02 <Beth Griffin - Last Filed: 10/05/17 10:08> ED Treatment Course - LABORATORY CBC & Chemistry Diagram: 10/01/17 19:40 10/01/17 19:40 - ADDITIONAL ORDERS Additional order review: Laboratory Results 10/01/17 19:40 PT with INR Cancelled INR Cancelled <Jannie Lawrence - Last Filed: 10/02/17 00:29> - LABORATORY CBC & Chemistry Diagram: 10/01/17 19:40 10/01/17 19:40 - RADIOLOGY Radiology Studies Ordered: Category Date Time Status ABDOMEN & PELVIS CT WITH CONTR [CT] Stat CT Scan 10/01/17 19:31 Ordered <Beth Griffin - Last Filed: 10/05/17 10:08> Medical Decision Making - Medical Decision Making 11:52pm Call placed to [facility]'s transfer center. 11:57 pm Call returned from [facility] monitoring manager attending Dr. Herrera, case was discussed. EXAM: CT angiogram of the chest, abdomen and pelvis HISTORY: Rule out PE. Abdominal pain. COMPARISON: None. FINDINGS: CT angiogram chest:There is no PE or dissection. Heart size is normal. The trachea and bronchi are patent. There is no pleural effusion. There is a small basilar pericardial effusion. The lungs are clear other than minimal left basilar atelectasis. No aortic aneurysm No fractures identified. CT angiogram abdomen and pelvis: Gallbladder is distended and mildly inflamed and there is mild/moderate intrahepatic biliary duct dilation. Tiny gallstone is noted. Findings suggest acute cholecystitis. There is a CBD stent in place with prominent atrophy of the pancreatic body and tail and pancreatic duct dilation which may reflect a pancreatic head mass and should be correlated with known medical history. Normal spleen, adrenal glands and kidneys. The stomach and abdominal small and large bowel are normal. There is no aortic dissection or aneurysm. There is no significant retroperitoneal lymphadenopathy. Infrarenal IVC filter is noted. Small fat containing ventral hernia is noted. Multiple abdominal wall subcutaneous air this may be related to medical injections. Bilateral gluteal calcified injection granulomas are noted. The pelvic small and large bowel are normal. The appendix is normal. The uterus and adnexal structures are normal. Urinary bladder is unremarkable. There is no pelvic free fluid. No discrete pelvic lymphadenopathy is identified. IMPRESSION: Small pericardial effusion. No other acute intrathoracic pathology. Biliary duct dilation, pancreatic duct dilation and atrophy of the pancreatic body and tail may reflect a pancreatic head mass which should be correlated with known medical history. Next item gallbladder distention and pericholecystic edema suggests acute cholecystitis. <Jannie Lawrence - Last Filed: 10/02/17 00:29> - Critical Care Time Total Critical Care Time (minutes): 60 Critical Care Statement: The care of this patient involved high complexity decision making to prevent further life threatening deterioration of the patient 's condition and/or to evaluate & treat vital organ system(s) failure or risk of failure. - Medical Decision Making Ms Art is a 77 yo F with a h/o recent dx of pancreatic cancer, recent dx of LE dvt s/p thrombectomy currently on Lovenox no s/p filter, HTN, HLD Please note, pt was transferred to [facility] s/p cancer, s/billiary stent due to obstruction due to pancreatic head mass, s/p GI bleed s/p cauterization via endoscopy, s/p right subclavian mediport s/p first round of Chemo Pt presents to the ER with due to weakness and chest pain Pt states that chest pain began this morning Pain is sharp, radiates to back no associated shortness of breath pt was apparently rigoring in the car en route to the ER No diarrhea - 2 formed stools today No blood per rectum Differential is broad and includes PE, ACS, Pneumonia, Pleural effusion, pericardial effusion, biliary obstruction with referred pain, musculoskeletal pain, Aortic dissection, ? pancreatitis Will do: Labs EKG CTA chest CT abd and pelvis Pain medications IV fluids IV morphine for pain Anticipate Admission 10/01/17 20:13 Laboratory Tests 10/01/17 19:40 WBC 3.8 L Hgb 11.2 Hct 32.5 Plt Count 307 10/01/17 20:23 EKG: Sinus rhythm, rate of 108 bpm, axis is nml, intervals nml, no st elevations or depressions 10/01/17 20:54 Laboratory Tests 09/11/17 09/11/17 10/01/17 07:15 07:15 19:40 WBC 4.9 3.8 L Hgb 11.2 Hct 30.7 L Plt Count 280 307 Sodium 132 L Potassium 4.3 Chloride 100 Carbon Dioxide 25 Anion Gap 7 L Creatinine 0.7 Random Glucose 111 H Total Bilirubin 6.7 H AST 452 H ALT 977 H Alkaline Phosphatase 388 H Creatine Kinase Troponin I 10/01/17 19:40 WBC Hgb Hct Plt Count Sodium 130 L Potassium 4.1 Chloride 95 L Carbon Dioxide 24 Anion Gap 11 Creatinine 0.8 Random Glucose 106 Total Bilirubin 3.8 H D AST 731 H ALT 851 H Alkaline Phosphatase 463 H Creatine Kinase 42 Troponin I < 0.02 No evidence of anemia Pt continues to have LFT abnormalities Pt has not voided CT: Gallbladder is distended and mildly inflamed and there is mild/moderate intrahepatic biliary duct dilation. Tiny gallstone is noted. Findings suggest acute cholecystitis. There is a CBD stent in place with prominent atrophy of the pancreatic body and tail and pancreatic duct dilation which may reflect a pancreatic head mass and should be correlated with known medical history. Findings consistent with Acute cholecystitis Pt s/p recent CBD stenting ? obstructed stent? Pt daughter present in the ER, states pt had temp of 101.5 at home prior to coming in to the ER 10/02/17 00:00 Call placed to [facility] Case discussed with Dr Hernandez Requests that this be discussed with general surgery (since she left their service 2 weeks ago) Case reviewed with Dr Lawson Accepts transfer 10/02/17 00:39 Pt BP now hypotensive 74/50 HR 103 Pt temp 100.5 Will bolus NS Will give Tylenol IV for fever Will re assess Pt is particularly concerning as she recently received Chemotherapy 10/02/17 00:55 Laboratory Tests 10/02/17 00:38 Total Amylase 52 Lipase 301 BP remains low Given Neosynephrine boluses 100mcg x 3 (pt remains hypotensive) Pt is mentating well Received 2 L NS Call placed to Charge nurse at [facility] (Paige) to update them on her status Empress in ER to bring pt to [facility] at 1:50am 3rd L NS hanging Clinical Impression: Acute Cholecystitis, initial presentation Sepsis, initial presentation <Beth Griffin - Last Filed: 10/05/17 10:08> *DC/Admit/Observation/Transfer - Attestations Scribe Attestion: 10/01/17 20:04 Documentation prepared by Jannie Lawrence, acting as medical recruiter for Beth Griffin MD. <Jannie Lawrence - Last Filed: 10/02/17 00:29> - Transfer to Acute Care Facility Receiving Facility: [facility]. Accepting Physician:: Dr Lawson <Beth Griffin - Last Filed: 10/05/17 10:08> Diagnosis at time of Disposition: Cholecystitis - Discharge Dispostion Disposition: TRANSFER ACUTE CARE/OTHER HOSP Condition at time of disposition: Guarded
[2017-10-01] MEDS ORDERED: SODIUM CHLORIDE 1,000 ML IV STA (19:43)
[2017-10-01] MEDS ORDERED: morphine CARPU-JECT 4 MG/1 ML DISP.SYRIN IVPUSH ONE (19:43)
[2017-10-01] MEDS ORDERED: morphine SULFATE 4 MG/ML VIAL ONE (19:59)
[2017-10-01 20:09] LABS: HEMATOCRIT 32.5 % (32.4-45.2); HEMOGLOBIN 11.2 GM/dL (10.7-15.3); MCH 29.7 pg (25.7-33.7); MCHC 34.6 g/dl (32.0-36.0); MEAN CELL VOLUME 85.8 fl (80-96); PLATELET COUNT 307 K/MM3 (134-434); RBC 3.79 M/mm3 (3.60-5.2); RDW 17.3 % (11.6-15.6); WHITE BLOOD COUNT 3.8 K/mm3 (4.0-10.0)
[2017-10-01 20:31] LABS: NEUT % 89.7 % (42.8-82.8)
[2017-10-01 20:32] LABS: BASO % 0.2 % (0-2.0); EOS % 0.2 % (0-4.5); LYMPH % 8.8 % (8-40); MONO % 1.1 % (3.8-10.2)
[2017-10-01 20:39] LABS: ALBUMIN 3.6 g/dl (3.4-5.0); ANION GAP 11 (8-16); BILIRUBIN,TOTAL 3.8 mg/dL (0.2-1.0); BLOOD UREA NITROGEN 15 mg/dL (7-18); CALCIUM 9.2 mg/dL (8.5-10.1); CHLORIDE 95 mmol/L (98-107); CO2 24 mmol/L (21-32); CREATININE 0.8 mg/dL (0.55-1.02); GLUCOSE,RANDOM 106 mg/dL (74-106); SODIUM 130 mmol/L (136-145); TOT PROT 7.3 g/dl (6.4-8.2)
[2017-10-01 20:41] LABS: ALK PHOS 463 U/L (45-117)
[2017-10-01 20:42] LABS: POTASSIUM 4.1 mmol/L (3.5-5.1); SGOT/AST 731 U/L (15-37); SGPT/ALT 851 U/L (12-78)
[2017-10-01 20:55] LABS: INR 1.27 (0.82-1.09); PROTHROMBIN TIME (PATIENT) 14.4 SEC (9.98-11.88)
[2017-10-01] MEDS ORDERED: PIPERACILLIN/TAZOB 3.375 GM 50 ML IVPB ONE (23:43)
[2017-10-01] MEDS ORDERED: PIPERACILLIN/TAZOB 3.375 GM 3.375 GM/50 ML BAG IVPB ONE (23:51)
[2017-10-02 00:38] VITALS: TEMP 100.9
[2017-10-02] MEDS ORDERED: ACETAMINOPHEN 1000 MG/100 ML VIAL (NON FORMULARY) IVPB ONE (00:38)
[2017-10-02] MEDS ORDERED: SODIUM CHLORIDE 1,000 ML IV STA (00:38)
[2017-10-02] MEDS ORDERED: ACETAMINOPHEN INJECTION 100 ML IVPB ONE (00:39)
[2017-10-02 00:48] LABS: AMYLASE 52 U/L (25-115)
[2017-10-02 00:49] LABS: LIPASE 301 U/L (73-393)
[2017-10-02] MEDS ORDERED: PHENYLEPHRINE HCL 10 MG/1 ML SINGLE DOSE VIAL IVPB ONE (01:19)
[2017-10-02] MEDS ORDERED: PHENYLEPHRINE HCL 10 MG/1 ML SINGLE DOSE VIAL ONE (01:21)
[2017-10-02 01:48] VITALS: BP 83/45; PULSE 102
--- NOTE | 2017-10-02 09:01 | EKG ---
Test Reason : Blood Pressure : / mmHG Vent. Rate : 108 BPM Atrial Rate : 108 BPM P-R Int : 160 ms QRS Dur : 076 ms QT Int : 334 ms P-R-T Axes : 026 056 042 degrees QTc Int : 447 ms SINUS TACHYCARDIA OTHERWISE NORMAL ECG WHEN COMPARED WITH ECG OF 09-SEP-2017 12:31, VENT. RATE HAS INCREASED BY 41 BPM Confirmed by JENNIFER STACY MD ([id number]) on 10/02/2017 9:00:56 AM Referred By: Confirmed By:JENNIFER STACY MD
--- NOTE | 2017-10-04 07:54 | PDOC ---
Patient Follow-up (Call Back) - Post ED Follow - Up Condition at time of discharge: Guarded Disposition at time of original discharge: TRANSFER ACUTE CARE/OTHER HOSP Reason for Call Back: Abnwl. Microbiology (Patient's blood culture shows lactose fermenting negative bacilli. I have called the patient's home and states patient was admitted to the ICU at [facility]. Called [facility] and spoke to sravan Rosas rn and faxed the results to [phone])
== END 2017-10-02 01:59 | disposition short-term general hospital (02) ==
LOC: JER 18:49
DX: K80.00 Calculus of gallbladder with acute cholecystitis without obstruction (principal); I10 Essential (primary) hypertension; E78.00 Pure hypercholesterolemia, unspecified; E03.9 Hypothyroidism, unspecified; C25.7 Malignant neoplasm of other parts of pancreas; Z08 Encounter for follow-up examination after completed treatment for malignant neoplasm; Z85.820 Personal history of malignant melanoma of skin; Z87.19 Personal history of other diseases of the digestive system; Z86.718 Personal history of other venous thrombosis and embolism; Z79.01 Long term (current) use of anticoagulants
CPT/HCPCS: 36415; 71045-TC-FY; 71275-TC; 74177-TC; 80053; 82150; 82550; 83605; 83690; 84484; 85025; 85610; 86850; 86900; 86901; 87040; 87186; 93005; 93010; 99285-25; J0131; J7030